=== PATIENT | female | born 1995 | race Asian ===

== ENCOUNTER → 2018-12-02 12:46 | Outpatient (REF) | payer SELFPAY ==
[2018-12-02 13:07] LABS: Influenza A and B by PCR Rapid Negative (Negative)
== END ==
LOC: LAB 12:46
PROVIDERS: Visit Provider Nurse Practitioner Family
DX: R50.9 Fever, unspecified (principal); R05 Cough; R52 Pain, unspecified
CPT/HCPCS: 87400

== ENCOUNTER → 2019-08-11 18:19 | Outpatient (CLI) | payer OTHER, SELFPAY ==
--- NOTE | 2019-08-11 18:22 | DI.RAD.S_ITS ---
PROCEDURE: XR CHEST 2V INDICATIONS: hx of bcg vaccine, r/o tb TECHNIQUE: 2 views of the chest were acquired. COMPARISON: None. FINDINGS: Surgical changes and devices: None. Lungs and pleura: Lungs are clear. No pleural effusions or pneumothorax. Mediastinum: Mediastinal contours are normal. Heart size is normal. Bones and chest wall: No suspicious bony abnormalities. Soft tissues appear unremarkable. IMPRESSION: No acute cardiopulmonary disease process. No radiographic evidence of tuberculosis. Dictated by: Fara Villanueva MD, PhD on 08/11/2019 at 18:40 Approved by: Fara Villanueva MD, PhD on 08/11/2019 at 18:40
== END ==
PROVIDERS: Visit Provider Physician Assistant
DX: Z11.1 Encounter for screening for respiratory tuberculosis (principal)
CPT/HCPCS: 71046

== ENCOUNTER → 2019-12-15 11:02 | Outpatient (CLI) | payer OTHER, SELFPAY ==
[2019-12-15 13:02] LABS: Add Manual Diff / Slide Review NO; Basophils Absolute Auto 0 /uL (0-100); Basophils Percent Auto 0.6 % (0-2); Eosinophils Absolute Auto 500 /uL (0-450); Eosinophils Percent Auto 6.9 % (2-4); Hemoglobin 13.6 g/dL (12.0-16.0); Lymphocytes Absolute Auto 2300 /uL (1100-4500); Lymphocytes Percent Auto 31.7 % (25-40); Mean Corpuscular Hemoglobin 30.6 PG (26-34); Mean Corpuscular Volume 89.8 fL (80-100); Monocytes Absolute Auto 500 /uL (0-900); Monocytes Percent Auto 7.3 % (3-14); Neutrophils Absolute Auto 3900 /uL (1500-7000); Neutrophils Percent Auto 53.5 % (50-75); Platelet Count 224 X10^3/uL (150-400); Red Blood Cell Count 4.45 X10^6/uL (4.0-5.2); Red Cell Distribution Width 12.7 % (11.6-14.8); White Blood Cell Count 7.2 X10^3/uL (4.5-11.0)
[2019-12-15 13:06] LABS: Alanine Aminotransferase 22 IU/L (<35); Albumin 4.6 g/dL (3.5-5.0); Albumin Globulin Ratio 1.3 (1.0-2.8); Alkaline Phosphatase 52 U/L (38-126); Aspartate Aminotransferase 30 IU/L (14-36); BUN Creatinine Ratio 20.3 (6-22); Bilirubin Total 0.4 mg/dL (0.2-1.3); Blood Urea Nitrogen 12 mg/dL (7-17); Calcium 9.4 mg/dL (8.4-10.2); Carbon Dioxide 25 mmol/L (22-32); Chloride 104 mmol/L (98-107); Estimated Glomerular Filt Rate > 60.0 mL/min (>60); Globulin 3.6 g/dL (1.7-4.1); Glucose 142 mg/dL (70-100); HEMOLYSIS < 15 (0-50); Potassium 3.5 mmol/L (3.4-5.1); Sodium 141 mmol/L (137-145); Total Protein 8.2 g/dL (6.3-8.2)
== END ==
PROVIDERS: PCP Family Medicine; Referring Provider Family Medicine; Visit Provider Family Medicine
DX: F41.9 Anxiety disorder, unspecified (principal); R00.2 Palpitations
CPT/HCPCS: 36415; 80053; 84443; 85025

== ENCOUNTER → 2019-12-18 14:56 | Outpatient (CLI) | payer OTHER, SELFPAY ==
--- NOTE | 2019-12-18 14:59 | DI.ECHO.S_ITS ---
[facility]---------+ [facility] +---------+ : : [address] [place] : : : : [id number] : : : : Phone: [phone]+ Echocardiogram Report + + :Name: THANH CLAYTON Study Date: 12/18/2019 Height: 61 in : :[facility] Weight: 145 lb : : Gender: Female BSA: 1.6 m2 : :: 1995 Age: 24 yrs BP: 118/64 mmHg: :Reason For Study: PALPITATIONS : : Performed By: Kristie Tripp : :Referring: JULIANE EDWARDS : + + Interpretation Summary The left ventricle is normal in size. The ejection fraction is estimated to be 60-65%. The right ventricle is normal in size and function. No significant valvular pathology seen. The IVC is of normal diameter and collapses greater than 50% with a sniff. This suggests a low right atrial pressure of 3 mm Hg. Procedure: A two-dimensional transthoracic echocardiogram with color flow and Doppler was performed. The study quality was technically good. There is no prior echocardiogram noted for this patient. The patient was in normal sinus rhythm during the exam. Left Ventricle: The left ventricle is normal in size. There is normal left ventricular wall thickness. There is no thrombus. The ejection fraction is estimated to be 60-65%. There are no focal wall motion abnormalities. Diastolic parameters suggest probable normal left ventricular diastolic function and normal filling pressures. Right Ventricle: The right ventricle is normal in size and function. Atria: The left atrial size is normal. Right atrial size is normal. The interatrial septum is intact with no evidence for an atrial septal defect. Mitral Valve: The mitral valve is normal in structure and function. There is trace mitral regurgitation. Aortic Valve: The aortic valve is normal in structure and function. The aortic valve is trileaflet. The aortic valve opens well. No aortic regurgitation is present. Tricuspid Valve: The tricuspid valve is normal in structure and function. No tricuspid regurgitation. Pulmonary artery pressures cannot be estimated because of the lack of a measurable TR jet velocity but the IVC suggests a CVP of around 3 mmHg. Pulmonic Valve: The pulmonic valve is normal in structure and function. There is no pulmonic valvular regurgitation. Great Vessels: The aortic root is normal size. The dimensions of the ascending aorta are normal. The pulmonary artery is normal size. The IVC is of normal diameter and collapses greater than 50% with a sniff. This suggests a low right atrial pressure of 3 mm Hg. Pericardium/ Pleura There is no pericardial effusion. There is no pleural effusion. MMode/2D Measurements & Calculations LVIDd: 4.5 cm LVOT diam: 2.0 cm LVIDs: 3.1 cm Ao root diam: 2.3 cm FS: 31.1 % asc Aorta Diam: 2.6 cm EPSS: 0.76 cm Ao Arch Diam (Prox Trans): 2.4 cm IVSd: 0.59 cm LVPWd: 0.69 cm LV william. diameter/BSA (cm/m^2): 2.7 LV sys. diameter/BSA (cm/m^2): 1.9 LA A2 area: 14.6 cm2 RA long axis: 4.2 cm LA A4 area: 13.2 cm2 RA area: 12.5 cm2 LA length (vol): 4.6 cm RA vol: 31.9 ml LA vol: 35.4 ml RA : 19.3 ml/m2 LA vol index: 21.5 ml/m2 RVD1 (basal): 3.3 cm TAPSE: 2.9 cm Doppler Measurements & Calculations Ao V2 max: 139.7 cm/sec LVOT Max Markell: 105.7 cm/sec Ao V2 mean: 90.0 cm/sec LV V1 max P.5 mmHg Ao max P.8 mmHg LV V1 VTI: 21.2 cm Ao mean P.8 mmHg BENTON(I,D): 2.4 cm2 Ao V2 VTI: 27.0 cm BENTON(V,D): 2.3 cm2 sev ratio: 0.79 BENTON indexed to BSA (cm^2/m^2): 1.4 MV E max markell: 106.4 cm/sec PA V2 max: 99.0 cm/sec MV A max markell: 64.7 cm/sec PA V2 mean: 69.7 cm/sec MV E/A: 1.6 PA mean P.2 mmHg Med Peak E' Markell: 13.4 cm/sec PA pr(Accel): 22.5 mmHg E/E' med: 7.9 Lat Peak E' Markell: 13.0 cm/sec E/E' lat: 8.2 E/e' average: 8.0 MV dec time: 0.18 sec SV(LVOT): 63.7 ml Reading Physician:05:06 PM
== END ==
PROVIDERS: PCP Family Medicine; Referring Provider Family Medicine; Visit Provider Family Medicine
DX: R00.2 Palpitations (principal)
CPT/HCPCS: 93306

== ENCOUNTER → 2019-12-22 10:05 | Outpatient (CLI) | payer OTHER, SELFPAY ==
[2019-12-22 11:39] LABS: Glucose 94 mg/dL (70-100)
== END ==
PROVIDERS: PCP Family Medicine; Referring Provider Family Medicine; Visit Provider Family Medicine
DX: R73.9 Hyperglycemia, unspecified (principal)
CPT/HCPCS: 36415; 82947

== ENCOUNTER → 2020-01-02 09:12 | Outpatient (CLI) | payer OTHER, SELFPAY ==
[2020-01-02 10:55] LABS: BUN Creatinine Ratio 23.4 (6-22); Blood Urea Nitrogen 11 mg/dL (7-17); Calcium 9.5 mg/dL (8.4-10.2); Carbon Dioxide 26 mmol/L (22-32); Chloride 103 mmol/L (98-107); Estimated Glomerular Filt Rate > 60.0 mL/min (>60); Glucose 90 mg/dL (70-100); HEMOLYSIS < 15 (0-50); Sodium 138 mmol/L (137-145)
== END ==
PROVIDERS: PCP Family Medicine; Referring Provider Family Medicine; Visit Provider Family Medicine
DX: R73.01 Impaired fasting glucose (principal)
CPT/HCPCS: 36415; 80048; 83036

== ENCOUNTER → 2020-10-14 16:26 | Outpatient (CLI) | payer OTHER, SELFPAY ==
[2020-10-14 17:08] LABS: Hematocrit 40.8 % (36-46); Hemoglobin 13.7 g/dL (12.0-16.0); Mean Corpuscular HGB Conc 33.5 % (30-36); Mean Corpuscular Hemoglobin 29.9 PG (26-34); Mean Corpuscular Volume 89.2 fL (80-100); Platelet Count 218 X10^3/uL (150-400); Red Blood Cell Count 4.57 X10^6/uL (4.0-5.2); Red Cell Distribution Width 12.6 % (11.6-14.8); White Blood Cell Count 11.1 X10^3/uL (4.5-11.0)
[2020-10-14 17:24] LABS: BUN Creatinine Ratio 26.5 (6-22); Blood Urea Nitrogen 13 mg/dL (7-17); Calcium 9.3 mg/dL (8.4-10.2); Carbon Dioxide 29 mmol/L (22-32); Chloride 105 mmol/L (98-107); Estimated Glomerular Filt Rate > 60.0 mL/min (>60); Glucose 98 mg/dL (70-100); HEMOLYSIS < 15 (0-50); Potassium 3.2 mmol/L (3.4-5.1); Sodium 140 mmol/L (137-145)
[2020-10-14 17:53] LABS: TSH w/ Reflex to FT4 2.22 uIU/mL (0.47-4.68)
== END ==
PROVIDERS: PCP Family Medicine; Referring Provider Nurse Practitioner Family; Visit Provider Nurse Practitioner Family
DX: Z00.00 Encounter for general adult medical examination without abnormal findings (principal); N94.6 Dysmenorrhea, unspecified; R42 Dizziness and giddiness; Z31.69 Encounter for other general counseling and advice on procreation
CPT/HCPCS: 36415; 80048; 84443; 85027

== ENCOUNTER → 2021-03-09 16:22 | Outpatient (CLI) | payer OTHER, SELFPAY ==
[2021-03-09 16:58] LABS: COVID19 -Nasal RAPID Negative (Negative)
== END ==
PROVIDERS: PCP Family Medicine; Referring Provider Specialist; Visit Provider Specialist
DX: Z01.812 Encounter for preprocedural laboratory examination (principal); Z20.822 Contact with and (suspected) exposure to COVID-19
CPT/HCPCS: 87635

== ENCOUNTER 2021-03-10 08:02 | Day surgery (SDC) | payer OTHER, SELFPAY ==
[2021-03-04 13:28] VITALS: BMI 27.0
[2021-03-10] VITALS (9 sets, daily range): BP systolic 86–116; BP diastolic 55–78; PULSE 59–86; RESP 14–32; TEMP 36.2–36.4; O2SAT 99–100; BMI 27.0
[2021-03-10] MEDS: LACTATED RINGERS 1,000 ML 100 ML IV (08:39)
--- NOTE | 2021-03-10 09:24 | PM.HP.1 ---
History of Present Illness History of Present Illness Date Patient Seen: 03/10/21 Time Patient Seen: 09:25 Chief complaint: SDC Narrative: Patient is a 25-year-old 0 with a persistent right ovarian cyst who presents for laparoscopic removal of the cyst. Patient History Medical History (Updated 11/22/20 @ 17:08 by Felisha Gordon MD) Anxiety Dysmenorrhea Infertility counseling Light-headed feeling Palpitations Vertigo Surgical History (Updated 02/23/19 @ 23:03 by Tracee Rooney) History of lithotripsy Family & Social History Family History (Updated 02/23/19 @ 23:04 by Tracee Rooney) Mother Early menopause Father History of heart disease Mother History of heart disease Stroke Social History: household members spouse Tobacco & Substance use: Smoking Status Never smoker alcohol intake never Substance Use Type does not use Meds Home Medications and Allergies Home Medications Medication Instructions Recorded Confirmed Type ferrous sulfate 325 mg (65 mg 325 mg PO DAILY 10/14/20 03/10/21 History iron) tablet (Feosol) meclizine 25 mg tablet 25 mg PO BID PRN #30 tab 10/14/20 03/04/21 Rx prenat.vits,dalton,cnz-vyla-trivq 1 tab PO DAILY 10/14/20 03/10/21 History Allergies Allergy/AdvReac Type Severity Reaction Status Date / Time soap AdvReac Mild Rash Verified 03/10/21 08:27 Exam Vital Signs (past 8 hours): - 03/10/21 08:29 Temperature 97.1 F L Pulse Rate 86 Respiratory Rate 16 Blood Pressure 116/78 Pulse Oximetry 100 Oxygen Delivery Method Room Air Oxygen Flow Rate 0 Narrative Exam Narrative: HEENT: No thyromegaly, no anterior cervical or supraclavicular lymphadenopathy. Lungs:Clear to auscultation bilaterally, no wheezes. Cardiovascular: Regular rate and rhythm, no murmurs, rubs, or gallops. Abdomen: No scars. No hepatosplenomegaly. No masses palpable. External genitalia: Normal Vagina: Normal Cervix: Normal Bimanual exam: 6 Week size anteverted uterus. Mobile. Right adnexal tenderness and fullness. Assessment & Plan Assessment & Plan narrative: Assessment: 25-year-old 0 with a persistent right ovarian cyst Plan: Laparoscopic removal of right ovarian cyst The risks were explained to the patient including bleeding, infection, injury to the bowel, bladder, or ureters. She understands these risks and agrees to proceed. A full par Q was held and consent form was signed. COVID-19 COVID-19 status: Negative Result date/Date tested (Pos, Neg/Pending): 03/09/21 Time Spent With Patient Time with patient: less than 15 minutes
--- NOTE | 2021-03-10 09:27 | PM.PREOP ---
Pre-operative Note COVID-19 COVID-19 status: Negative Result date/Date tested (Pos, Neg/Pending): 03/09/21 Interval Note History & Physical reviewed/Exam performed by Physician: Yes Changes to H&P: No H&P completed within 30 days and has changed as indicated here:: 03/10/21
--- NOTE | 2021-03-10 09:48 | SUR.OPER ---
Lithotomy on padded OR bed, head on pillow, arms padded with gel pads and tucked at sides. Legs secured in padded yellow fins stirrups.
[2021-03-10] MEDS: BUPIVACAINE 0.5% (PF) VIAL 30 ML INJ (10:04)
[2021-03-10] MEDS: EPINEPHrine 1 MG/ML IV (10:05)
--- NOTE | 2021-03-10 10:35 | SUR.PHASEI ---
1030 Patient complained of slight dizziness, tolerating sips water and ice chips. Denies nausea. HOB down, IVF running wide open, IV site patent. Pt now states she feels 'normal.
--- NOTE | 2021-03-10 10:42 | P.OP_ITS ---
Operative Date/Time/Diagnoses Date of procedure: 03/10/21 Time of procedure: 10:42 Pre-op diagnosis: Right ovarian cyst Post-op diagnosis: same Procedure & Clinicians Procedure: Procedures Operation Date: 03/10/21 09:15 Actual Procedure Side Surgeon p Laparoscopic Aspiration of Right Ovarian Cyst and Fulguration of Endometriosis Right Felisha Gordon MD Indications: Persistent Right ovarian cyst Surgeon: Felisha Gordon Anesthesia Type: General and Local Operative Notes Findings: 6 week size anteverted uterus Large 1 cm x 0.75 cm endometrial implant in the left ovarian fossa No other signs of endometriosis Normal tubes and ovaries Normal appendix Normal gallbladder and liver 3 cm x 3 cm simple ovarian cyst on the right ovary No evidence of other endometriosis throughout the pelvis including appendix, right ovarian fossa, ovaries and tubes, and anterior and posterior cul-de-sacs Closure Type: primary Specimen(s): none Estimated blood loss (mL): 5 Blood products transfused: none Procedure in detail: After informed consent was obtained, the patient was taken to the operating room where she was placed in the dorsal lithotomy position and prepped and draped in the usual sterile fashion. A time-out was performed. A bivalve speculum was placed into the vagina and the anterior lip of the cervix was grasped with a single-tooth tenaculum. Cervical os was sequentially dilated until the Zumi uterine manipulator could pass easily into the endometrial cavity. The single-tooth tenaculum was removed from the anterior lip of the cervix, and the bivalve speculum was removed from the vagina. Attention was turned to the abdomen where 6 cc of 0.5% Marcaine with epinephrine were injected in the umbilical fold. A 5 mm incision was made. The Veress needle was placed into the peritoneal cavity, and its placement confirmed by aspiration and drop test. The abdominal cavity was insufflated with 3.4 L of CO2. The Veress needle was removed and a 5 mm trocar was placed without difficulty. A second trocar was placed 4 cm lateral to the midline after 6 cc of 0.5% Marcaine with epinephrine were injected and a 5 mm trocar was placed under direct visualization. The probe was used to visualize the anterior and posterior cul-d e-sac. In the left ovarian fossa there was a large endometriotic implant. A third trocar was placed after 6 cc of 0.5% Marcaine with epinephrine were injected, 4 cm on the right lateral side of the umbilicus. Using the spoon cautery, the endometriotic implant was fulgurated. An atraumatic grasper was placed on the right utero-ovarian ligament. Using the aspirator, the right ovarian cyst was aspirated. The cyst was then opened up and the wall of the cyst was cauterized. Hemostasis was achieved. The instruments were removed from the abdomen. The CO2 was allowed to escape. The incisions were repaired with 4-0 Biosyn in a subcuticular fashion. Steri-Strips and Allevyn dressings were placed. The Zumi uterine manipulator was removed from the uterus. Sponge, lap, and instrument counts were correct x2. The patient tolerated the procedure well, and was taken to PACU in stable condition. Complications: none Post-operative Condition: stable Disposition: PACU Plan for aftercare: Home after recovery
[2021-03-10] MEDS: ACETAMINOPHEN 325 MG TABLET 650 MG PO (10:47)
--- NOTE | 2021-03-10 10:53 | SUR.PHASEI ---
Spoke with Dr Gordon for instructions on return to work. Off for 1 week. See DC instructions.
--- NOTE | 2021-03-10 11:01 | SUR.PHASEI ---
1058 Patient transferred to OPD via stretcher with Carley BASS. Dizziness resolved. Tolerating Juice. Dressings and deb pad CDI.
== END 2021-03-10 11:40 | disposition home or self-care (01) ==
PROVIDERS: PCP Family Medicine; Referring Provider Obstetrics & Gynecology; Visit Provider Obstetrics & Gynecology
PROC: (CPT 58662; principal; 2021-03-10 09:15)
DX: N83.291 Other ovarian cyst, right side (principal); N80.1 Endometriosis of ovary
CPT/HCPCS: 58662; 49322; J0171; J1100; J1885; J2250; J2405; J2704; J3010

== ENCOUNTER → 2022-02-15 15:14 | Outpatient (CLI) | payer OTHER, SELFPAY ==
--- NOTE | 2022-02-15 15:18 | DI.RAD.S_ITS ---
PROCEDURE: XR SHOULDER RT MIN 2V INDICATIONS: Shoulder injury TECHNIQUE: 3 views of the shoulder were acquired. COMPARISON: None. FINDINGS: Bones: No fractures or dislocations. No suspicious bony lesions. Visualized ribs appear intact. Soft tissues: No suspicious soft tissue calcifications. IMPRESSION: Normal right shoulder radiographs Approved by: Don Narayanan M.D. on 02/15/2022 at 15:25
--- NOTE | 2022-02-15 15:18 | DI.RAD.S_ITS ---
PROCEDURE: XR AC JOINT BI INDICATIONS: pop when lifting, constant pain, r/o fx TECHNIQUE: 2 views each of both acromioclavicular joints were acquired. COMPARISON: None. FINDINGS: Bones: No fractures or dislocations. Weightbearing views demonstrate normal acromioclavicular joint alignment as well. No suspicious bony lesions. Superior ribs appear normal. Soft tissues: No suspicious soft tissue calcifications. IMPRESSION: Unremarkable AC joint radiographs. No evidence of fracture. Approved by: Don Narayanan M.D. on 02/15/2022 at 15:22
== END ==
PROVIDERS: Referring Provider Physician Assistant; Visit Provider Physician Assistant
DX: S49.91XA Unspecified injury of right shoulder and upper arm, initial encounter (principal); M25.511 Pain in right shoulder; X58.XXXA Exposure to other specified factors, initial encounter
CPT/HCPCS: 73030; 73050

== ENCOUNTER 2022-05-19 09:00 | Outpatient (RCR) | payer OTHER, SELFPAY ==
--- NOTE | 2022-03-27 13:48 | PT.OIE ---
Current Diagnoses Strain of unspecified muscle, fascia and tendon at shoulder and upper arm level, right arm, initial encounter (03/27/22) Past Medical History (Last Updated 10/14/20 @ 17:01 by ANGELICA Weiss) Anxiety Dysmenorrhea Infertility counseling Light-headed feeling Palpitations Vertigo Past Surgical History (Last Updated 02/23/19 @ 23:03 by Tracee Rooney) History of lithotripsy Visit Care Team Role Provider Type Piter Munoz DO Family Provider Physician Primary Care Provider Specialty: Family Practice Address: [address] [place] [address], [facility] Email: [email or web address] Attending Provider [employer] 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 Referring Provider Specialty: Internal Medicine Address: [address] [place] [address], [facility] Email: [email or web address] Physical Therapy Initial Evaluation PT-OP-A Visit Information Start: 03/23/22 16:54 Freq: Status: Active Protocol: Document 03/27/22 13:48 SAK (Rec: 03/27/22 14:32 SAK [id number]) Out-Patient Physical Therapy Visit Information Visit Information Visit Type Initial Evaluation Visit Start Time 13:48 Visit Stop Time 14:44 Total Visit Minutes 56 Visit Number 1 Evaluation Information Evaluation Date 03/27/22 PT-OP-B Current Condition Start: 03/23/22 16:54 Freq: Status: Active Protocol: Document 03/27/22 13:48 [facility]AK (Rec: 03/27/22 14:32 [facility] [id number]) Current Condition History of Current Condition Onset Date 11/28/21 (day before ) Current Complaints shoulder pain History of Current Condition tried to keep patient from falling to the floor, heard pop in her shoulder, has hurt ever since. x-ray negative. Will do further imaging if PT not helpful. Patient still working, no time off. Painful to reach overhead, behind her back, out to the side with ADL's and work. Has tried ice and heat, Tylenol and Ibuprofen. Prior Treatments and Tests x-ray negative Future Testing and Treatments Planned return to doctor if PT not helpful Treatment Goals Patient/Caregiver Goals eliminate her pain, return to full active use of her right UE Prior Functional Status Baseline Function- ADL's Independent Baseline Function- Mobility Independent Baseline Function- Recreation/Hobbies no prob, biked Current Functional Impairments (Reported) Functional Limitations- ADL's painful to lift overhead, reach to side, or reach behind her back Functional Limitations- Work/School painful Functional Limitations- Recreation/ biking is painful Hobbies Personal Factors Other Personal Factors That May Effect 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 PT-OP-C Subjective Start: 03/23/22 16:54 Freq: Status: Active Protocol: Document 03/27/22 13:48 [facility] (Rec: 03/27/22 14:32 [facility] [id number]) Patient Questionnaires Quick Dash- Upper Extremity Quick Dash UE Score 50 OP-PT Pain Assessment Pain Assessment Grid Paper Pain Assessment Grid Completed Yes Location Right Shoulder Pain Location Details see pain chart;GH joint line ant and post Intensity 7 Description Aching Frequency Frequent Pain Aggravating Factors Activity,Lifting Other Pain Aggravating Factors reaching overhead, behind back Pain Alleviating Factors Cold,Heat,Medication Other Pain Alleviating Factors minimal effect Pain Behaviors Pain Behaviors Facial Grimacing,Guarding, Restlessness PT-OP-H Neuro Start: 03/23/22 16:54 Freq: Status: Active Protocol: Document 03/27/22 13:48 SAK (Rec: 03/27/22 14:32 [facility] [id number]) Sensation Evaluation Gross Sensation Gross Sensation WNL PT-OP-J Posture/Palpation/Skin Start: 03/23/22 16:54 Freq: Status: Active Protocol: Document 03/27/22 13:48 [facility] (Rec: 03/27/22 14:32 [facility] [id number]) Posture Evaluation Position Sitting T-Spine Posture Increased Kyphosis Scapula Posture (R) Protracted Arm Posture (R) Internally Rotated Palpation Assessment Location GH Palpation Location along joint line Palpation Findings Tenderness Palpation Details tenderness with light palpation Skin Assessment Edema Assessment right shoulder Comments none noted Other Assessments Skin Assessment Comments skin intact, no redness or warmth PT-OP-K Range of Motion Start: 03/23/22 16:54 Freq: Status: Active Protocol: Document 03/27/22 13:48 [facility]AK (Rec: 03/27/22 14:32 [facility] [id number]) Cervical Spine Range of Motion Cervical Spine Active Comments WNL, slight right UT tightness Shoulder Goniometric Range of Motion Shoulder Right Active Shoulder ROM WFL No Testing Position Sitting Flexion 152 Extension 16 Abduction 121 External Rotation at 45 degrees 40 Abduction Internal Rotation Behind Back (text) lateral buttock left Shoulder ROM WFL Yes Flexion 180 Extension 35 Abduction 180 External Rotation at 45 degrees 80 Abduction Internal Rotation Behind Back (text) T4 Elbow/Forearm Range of Motion Elbow/Forearm juan Elbow/Forearm ROM WFL Yes PT-OP-M Strength Start: 03/23/22 16:54 Freq: Status: Active Protocol: Document 03/27/22 13:48 [facility] (Rec: 03/29/22 12:08 [facility] [id number]) Scapula Strength Scapula Manual Muscle Testing Right Elevation (C4) 3+ Fair+ Adduction 3+ Fair+ Abduction 3+ Fair+ Depression 3+ Fair+ Left Elevation (C4) 5 Normal Adduction 5 Normal Abduction 5 Normal Depression 5 Normal Shoulder Strength Shoulder Manual Muscle Testing Right Flexion 3- Fair- Extension 3- Fair- Abduction (C5) 3- Fair- External Rotation 3- Fair- Internal Rotation 3+ Fair+ Comments limited by pain, inability to move through full AROM Left Flexion 5 Normal Extension 5 Normal Abduction (C5) 5 Normal External Rotation 4+ Good+ Internal Rotation 4+ Good+ Elbow/Forearm Strength Elbow and Forearm Manual Muscle Testing Right Flexion (C6) 4- Good- Extension (C7) 4- Good- Comments limited by pain Left Flexion (C6) 5 Normal Extension (C7) 5 Normal PT-OP-Q Treatments Start: 03/23/22 16:54 Freq: Status: Active Protocol: Document 03/27/22 13:48 [facility] (Rec: 03/29/22 12:09 [facility] [id number]) Self-Care/Home Management Treatment Education Patient Education Home Exercise Program,Pain Management,Posture Other Education issued written HEP PT-OP-R Modalities Start: 03/23/22 16:54 Freq: Status: Active Protocol: Document 03/27/22 13:48 [facility] (Rec: 03/29/22 12:08 [facility] [id number]) Electric Stimulation Electric Stimulation Interferential Current (IFC) Body Location right shoulder Duration (Minutes) 10 Target/Sweep Sweep Patient Position Hooklying Combined With Heat/Cold Cold Pack Ultrasound Therapy Treatment Right Anterior Shoulder Patient Position Supine Coupling Medium Ultrasound Gel Duty Cycle 50% Intensity Setting (w/cm2) 1.2 Comments to decrease inflammation and pain PT-OP-T Assessment and Plan Start: 03/23/22 16:54 Freq: Status: Active Protocol: Document 03/27/22 13:48 [facility] (Rec: 03/27/22 14:32 [facility] [id number]) Physical Therapy Assessment Rehab Potential Rehabilitation Potential Good Evaluation Complexity Number of Personal Factors/Comorbidities 1-2 Number of Body Systems Impaired 3 Clinical Presentation at Evaluation Evolving Impairments Impairments Functional Activities,Pain,ROM ,Strength Goals right shoulder ROM and strength impairment Impairment lacking full shoulder ROM and strength Short Term Goal (STG) Improve right shoulder active elevation to 170 deg, ER to 60 , and internal rotation to be able to reach to L1 behind her back all to improve her functinal use of right UE STG Duration 05/04/22 Half-Way Goal (LTG) Patient to demonstrate right shoulder ROM WNL and strength 5/5 to allow her to safely return to prior level of function. LTG Duration 06/27/22 lacking HEP Impairment No HEP Short Term Goal (STG) Patient to be instructed in HEP for purposes of right shoulder ROM and strengthening for improved right shoulder function STG Duration 05/04/22 Half-Way Goal (LTG) Patient will be independent and compliant with progressive HEP for purposes of improving right shoulder ROM and strength for improved ability to use right UE LTG Duration 06/27/22 functional activity tolerance Impairment Quickdash UE disability index score 50% Short Term Goal (STG) Decrease score to no greater than 25% as measure of improved functional use of right UE STG Duration 05/04/22 Childhood Teacher Goal (LTG) Decrease score to no greater than 10% to allow patient to resume all usual activities with her shoulder including all work tasks, reaching overhead, behind her back, and ride her bike without an increase in pain. LTG Duration 06/27/22 Assessment Summary Assessment Patient presents with function -limiting pain in her right shoulder following attempt to keep patient from falling to the ground with immediate onset of right shoulder pain which has persisted. Patient has continued to work, pain persists and makes it very difficulty and painful for her to reach overhead, behind her back, and out to the side. positive drop arm, belly press , impingment signs [place]'s tests. Painful with resisted ER, IR, flex, ext, abduction. Signs and symptoms consistent with rotator cuff involvement , possible labral involvement. Feel she would benefit from PT to decrease her pain, improve her ROM and strength and ability to do all usual tasks using her right UE. She was instructed in gentle ROM ex and postural correction exercises due to guarding, trial kinesiotape , and ultrasound and ice applied to right shoulder for pain management. We discussed POC and patient agrees. Physical Therapy Plan Frequency and Duration Frequency of Treatment 2x/Week Duration of Treatment 12 weeks Plan of Care Start Date 03/27/22 Plan of Care End Date 06/27/22 Therapeutic Interventions Therapeutic Interventions Aquatic Therapy,Home Exercise Program,Manual Therapy,Patient /Caregiver Education,Self-Care /Home Management,Sensory Integration,Soft Tissue Mobilization,Taping, Therapeutic Activities, Therapeutic Exercises Modalities Cold Pack/Ice Massage,Electric Stimulation,Hot Packs, Iontophoresis,Ultrasound Next Visit Focus/Plan Next Note Type Treatment Note Next Visit Plan Evaluate response to eval and first treatment. Review HEP, gentle ther ex for ROM and strengthening right shoulder. Continue modalities, taping as needed for pain management.
--- NOTE | 2022-03-27 13:48 | PT.OPPOC ---
Physical, Occupational & Speech Therapy At [facility] Current Diagnoses Strain of unspecified muscle, fascia and tendon at shoulder and upper arm level, right arm, initial encounter (03/27/22) Visit Care Team Role Provider Type Piter Munoz DO Family Provider Physician Primary Care Provider Specialty: Family Practice Address: [address] [place] [address], [facility] Email: [email or web address] Attending Provider Advanced Rotor Coil Taper Referring Provider Specialty: Internal Medicine Address: [address] [place] [address], [facility], [place], [address] Email: [email or web address] Plan Of Care PT-OP-T Assessment and Plan Start: 03/23/22 16:54 Freq: Status: Active Protocol: Document 03/27/22 13:48 SAK (Rec: 03/27/22 14:32 [facility] [id number]) Physical Therapy Assessment Rehab Potential Rehabilitation Potential Good Evaluation Complexity Number of Personal Factors/Comorbidities 1-2 Number of Body Systems Impaired 3 Clinical Presentation at Evaluation Evolving Impairments Impairments Functional Activities,Pain,ROM ,Strength Goals right shoulder ROM and strength impairment Impairment lacking full shoulder ROM and strength Short Term Goal (STG) Improve right shoulder active elevation to 170 deg, ER to 60 , and internal rotation to be able to reach to L1 behind her back all to improve her functinal use of right UE STG Duration 05/04/22 Penitentiary Goal (LTG) Patient to demonstrate right shoulder ROM WNL and strength 5/5 to allow her to safely return to prior level of function. LTG Duration 06/27/22 lacking HEP Impairment No HEP Short Term Goal (STG) Patient to be instructed in HEP for purposes of right shoulder ROM and strengthening for improved right shoulder function STG Duration 05/04/22 Penitentiary Goal (LTG) Patient will be independent and compliant with progressive HEP for purposes of improving right shoulder ROM and strength for improved ability to use right UE LTG Duration 06/27/22 functional activity tolerance Impairment Quickdash UE disability index score 50% Short Term Goal (STG) Decrease score to no greater than 25% as measure of improved functional use of right UE STG Duration 05/04/22 [employer] Lead Goal (LTG) Decrease score to no greater than 10% to allow patient to resume all usual activities with her shoulder including all work tasks, reaching overhead, behind her back, and ride her bike without an increase in pain. LTG Duration 06/27/22 Assessment Summary Assessment Patient presents with function -limiting pain in her right shoulder following attempt to keep patient from falling to the ground with immediate onset of right shoulder pain which has persisted. Patient has continued to work, pain persists and makes it very difficulty and painful for her to reach overhead, behind her back, and out to the side. positive drop arm, belly press , impingment signs Dover's tests. Painful with resisted ER, IR, flex, ext, abduction. Signs and symptoms consistent with rotator cuff involvement , possible labral involvement. Feel she would benefit from PT to decrease her pain, improve her ROM and strength and ability to do all usual tasks using her right UE. She was instructed in gentle ROM ex and postural correction exercises due to guarding, trial kinesiotape , and ultrasound and ice applied to right shoulder for pain management. We discussed POC and patient agrees. Physical Therapy Plan Frequency and Duration Frequency of Treatment 2x/Week Duration of Treatment 12 weeks Plan of Care Start Date 03/27/22 Plan of Care End Date 06/27/22 Therapeutic Interventions Therapeutic Interventions Aquatic Therapy,Home Exercise Program,Manual Therapy,Patient /Caregiver Education,Self-Care /Home Management,Sensory Integration,Soft Tissue Mobilization,Taping, Therapeutic Activities, Therapeutic Exercises Modalities Cold Pack/Ice Massage,Electric Stimulation,Hot Packs, Iontophoresis,Ultrasound Next Visit Focus/Plan Next Note Type Treatment Note Next Visit Plan Evaluate response to eval and first treatment. Review HEP, gentle ther ex for ROM and strengthening right shoulder. Continue modalities, taping as needed for pain management. Plan of Care Dates Plan of Care Start Date 03/27/22 Plan of Care End Date 06/27/22 Electronically Signed by: Luana Bonilla, PT 03/29/22 7250 If you are in agreement with this Plan of Care, please return a signed and dated copy. I have reviewed this Plan of Care and certify that the skilled therapy services above are required to meet the patient?s needs. Physician Signature Date Printed Name and Credentials Clinical Instructor Signature Printed Name and Credentials
--- NOTE | 2022-04-03 16:40 | PT.OTN ---
Current Diagnoses Strain of unspecified muscle, fascia and tendon at shoulder and upper arm level, right arm, initial encounter (04/03/22) Physical Therapy Treatment Note PT-OP-A Visit Information Start: 03/23/22 16:54 Freq: Status: Active Protocol: Document 04/03/22 14:32 SAK (Rec: 04/03/22 15:14 SAK [id number]) Out-Patient Physical Therapy Visit Information Visit Information Visit Type Treatment Note Visit Start Time 14:32 Visit Stop Time 15:20 Total Visit Minutes 48 Visit Number 2 Evaluation Information Evaluation Date 03/27/22 PT-OP-B Current Condition Start: 03/23/22 16:54 Freq: Status: Active Protocol: Document 04/03/22 14:32 SAK (Rec: 04/03/22 15:14 [facility] [id number]) Current Condition History of Current Condition Onset Date 11/28/21 (day before ) Current Complaints shoulder pain History of Current Condition tried to keep patient from falling to the floor, heard pop in her shoulder, has hurt ever since. x-ray negative. Will do further imaging if PT not helpful. Patient still working, no time off. Painful to reach overhead, behind her back, out to the side with ADL's and work. Has tried ice and heat, Tylenol and Ibuprofen. Prior Treatments and Tests x-ray negative Future Testing and Treatments Planned return to doctor if PT not helpful PT-OP-C Subjective Start: 03/23/22 16:54 Freq: Status: Active Protocol: Document 04/03/22 14:32 SAK (Rec: 04/03/22 15:14 [facility] [id number]) OP-PT Subjective Patient Comments Patient Comments It's still there when asked about pain. Reports she did HEP. 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 PT-OP-H Neuro Start: 03/23/22 16:54 Freq: Status: Active Protocol: Document 03/27/22 13:48 SAK (Rec: 03/27/22 14:32 SAK [id number]) Sensation Evaluation Gross Sensation Gross Sensation WNL PT-OP-J Posture/Palpation/Skin Start: 03/23/22 16:54 Freq: Status: Active Protocol: Document 03/27/22 13:48 SAK (Rec: 03/27/22 14:32 SAK [id number]) Posture Evaluation Position Sitting T-Spine Posture Increased Kyphosis Scapula Posture (R) Protracted Arm Posture (R) Internally Rotated Palpation Assessment Location GH Palpation Location along joint line Palpation Findings Tenderness Palpation Details tenderness with light palpation Skin Assessment Edema Assessment right shoulder Comments none noted Other Assessments Skin Assessment Comments skin intact, no redness or warmth PT-OP-K Range of Motion Start: 03/23/22 16:54 Freq: Status: Active Protocol: Document 03/27/22 13:48 [facility] (Rec: 03/27/22 14:32 [facility] [id number]) Cervical Spine Range of Motion Cervical Spine Active Comments WNL, slight right UT tightness Shoulder Goniometric Range of Motion Shoulder Right Active Shoulder ROM WFL No Testing Position Sitting Flexion 152 Extension 16 Abduction 121 External Rotation at 45 degrees 40 Abduction Internal Rotation Behind Back (text) lateral buttock left Shoulder ROM WFL Yes Flexion 180 Extension 35 Abduction 180 External Rotation at 45 degrees 80 Abduction Internal Rotation Behind Back (text) T4 Elbow/Forearm Range of Motion Elbow/Forearm juan Elbow/Forearm ROM WFL Yes PT-OP-M Strength Start: 03/23/22 16:54 Freq: Status: Active Protocol: Document 03/27/22 13:48 [facility] (Rec: 03/29/22 12:08 [facility] [id number]) Scapula Strength Scapula Manual Muscle Testing Right Elevation (C4) 3+ Fair+ Adduction 3+ Fair+ Abduction 3+ Fair+ Depression 3+ Fair+ Left Elevation (C4) 5 Normal Adduction 5 Normal Abduction 5 Normal Depression 5 Normal Shoulder Strength Shoulder Manual Muscle Testing Right Flexion 3- Fair- Extension 3- Fair- Abduction (C5) 3- Fair- External Rotation 3- Fair- Internal Rotation 3+ Fair+ Comments limited by pain, inability to move through full AROM Left Flexion 5 Normal Extension 5 Normal Abduction (C5) 5 Normal External Rotation 4+ Good+ Internal Rotation 4+ Good+ Elbow/Forearm Strength Elbow and Forearm Manual Muscle Testing Right Flexion (C6) 4- Good- Extension (C7) 4- Good- Comments limited by pain Left Flexion (C6) 5 Normal Extension (C7) 5 Normal PT-OP-Q Treatments Start: 03/23/22 16:54 Freq: Status: Active Protocol: Document 04/03/22 14:32 [facility] (Rec: 04/03/22 15:14 [facility] [id number]) Therapeutic Exercises Sitting Exercises resisted ER Resistance L1 TB Reps/Minutes 10x shoulder IR Equipment Used pulleys Reps/Minutes 10x shoulder ext Reps/Minutes 10x Comments wand shoulder ER Equipment Used wand Reps/Minutes 10x pulleys Sitting Exercise Name flexion and scaption Reps/Minutes 10x ea scapular squeeze Reps/Minutes 10x Standing Exercises row Equipment Used L1 TB Reps/Minutes 10x pendulum Reps/Minutes 10x ea Manual Therapy Treatment Soft Tissue Mobilization right UT, RC inser Mobilization Type Cross-Friction,Myofascial Release,Sustained Pressure Intensity/Depth Moderate Body Position Supine Taping right RC Treatment Focus support, pain management Type of Tape kinesiotape Skin Inspection intact Comments 3 Y strips; see scanned RC taping technique in chart Self-Care/Home Management Treatment Education Patient Education Home Exercise Program,Pain Management,Posture Other Education issued updated written HEP PT-OP-R Modalities Start: 03/23/22 16:54 Freq: Status: Active Protocol: Document 04/03/22 14:32 [facility] (Rec: 04/03/22 15:14 [facility] [id number]) Electric Stimulation Electric Stimulation Interferential Current (IFC) Body Location right shoulder Duration (Minutes) 10 Target/Sweep Sweep Patient Position Hooklying Combined With Heat/Cold Cold Pack PT-OP-T Assessment and Plan Start: 03/23/22 16:54 Freq: Status: Active Protocol: Document 04/03/22 14:32 [facility] (Rec: 04/03/22 15:14 [facility] [id number]) Physical Therapy Assessment Goals right shoulder ROM and strength impairment Impairment lacking full shoulder ROM and strength Short Term Goal (STG) Improve right shoulder active elevation to 170 deg, ER to 60 , and internal rotation to be able to reach to L1 behind her back all to improve her functinal use of right UE STG Duration 05/04/22 Custodial Goal (LTG) Patient to demonstrate right shoulder ROM WNL and strength 5/5 to allow her to safely return to prior level of function. LTG Duration 06/27/22 lacking HEP Impairment No HEP Short Term Goal (STG) Patient to be instructed in HEP for purposes of right shoulder ROM and strengthening for improved right shoulder function STG Duration 05/04/22 Tray Delivery Aide Goal (LTG) Patient will be independent and compliant with progressive HEP for purposes of improving right shoulder ROM and strength for improved ability to use right UE LTG Duration 06/27/22 functional activity tolerance Impairment Quickdash UE disability index score 50% Short Term Goal (STG) Decrease score to no greater than 25% as measure of improved functional use of right UE STG Duration 05/04/22 Custodial Goal (LTG) Decrease score to no greater than 10% to allow patient to resume all usual activities with her shoulder including all work tasks, reaching overhead, behind her back, and ride her bike without an increase in pain. LTG Duration 06/27/22 Assessment Summary Assessment Good ROM achieved with shoulder flex and scaption with pulleys with minimal pain , IR more difficult. Fair tolerance for shoulder ext and ER. Cues for scapular activation and retraction with row and ER with TB. HEP updated. Kinesiotape applied right shoulder per RC technique. Ice and IFES for pain management. Patient demonstrated good understganding of HEP but will need further review for correct performance; urged pain-free ROM and intensity. Physical Therapy Plan Frequency and Duration Frequency of Treatment 2x/Week Duration of Treatment 12 weeks Plan of Care Start Date 03/27/22 Plan of Care End Date 06/27/22 Therapeutic Interventions Therapeutic Interventions Aquatic Therapy,Home Exercise Program,Manual Therapy,Patient /Caregiver Education,Self-Care /Home Management,Sensory Integration,Soft Tissue Mobilization,Taping, Therapeutic Activities, Therapeutic Exercises Modalities Cold Pack/Ice Massage,Electric Stimulation,Hot Packs, Iontophoresis,Ultrasound Next Visit Focus/Plan Next Note Type Treatment Note Next Visit Plan Continue progression of ther ex for right shoulder ROM and strengthening, scapular stabilization. Sidelyinig scapular mobilization and active shoulder flex. Trial supine wand ex, pull-downs with theraband facing away.
--- NOTE | 2022-04-12 14:30 | PT.OTN ---
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 x-ray negative. Will do further imaging if PT not helpful. Patient still working, no time off. Painful to reach overhead, behind her back, out to the side with ADL's and work. Has tried ice and heat, Tylenol and Ibuprofen. Prior Treatments and Tests x-ray negative Future Testing and Treatments Planned return to doctor if PT not helpful PT-OP-C Subjective Start: 03/23/22 16:54 Freq: Status: Active Protocol: Document 04/12/22 13:48 SP (Rec: 04/12/22 14:43 SP [id number]) OP-PT Subjective Patient Comments Patient Comments Pt stated pain still there, I like the ER HEP. PT-OP-H Neuro Start: 03/23/22 16:54 Freq: Status: Active Protocol: Document 03/27/22 13:48 SAK (Rec: 03/27/22 14:32 SAK [id number]) Sensation Evaluation Gross Sensation Gross Sensation WNL PT-OP-J Posture/Palpation/Skin Start: 03/23/22 16:54 Freq: Status: Active Protocol: Document 03/27/22 13:48 SAK (Rec: 03/27/22 14:32 SAK [id number]) Posture Evaluation Position Sitting T-Spine Posture Increased Kyphosis Scapula Posture (R) Protracted Arm Posture (R) Internally Rotated Palpation Assessment Location GH Palpation Location along joint line Palpation Findings Tenderness Palpation Details tenderness with light palpation Skin Assessment Edema Assessment right shoulder Comments none noted Other Assessments Skin Assessment Comments skin intact, no redness or warmth PT-OP-K Range of Motion Start: 03/23/22 16:54 Freq: Status: Active Protocol: Document 03/27/22 13:48 SAK (Rec: 03/27/22 14:32 SAK [id number]) Cervical Spine Range of Motion Cervical Spine Active Comments WNL, slight right UT tightness Shoulder Goniometric Range of Motion Shoulder Right Active Shoulder ROM WFL No Testing Position Sitting Flexion 152 Extension 16 Abduction 121 External Rotation at 45 degrees 40 Abduction Internal Rotation Behind Back (text) lateral buttock left Shoulder ROM WFL Yes Flexion 180 Extension 35 Abduction 180 External Rotation at 45 degrees 80 Abduction Internal Rotation Behind Back (text) T4 Elbow/Forearm Range of Motion Elbow/Forearm juan Elbow/Forearm ROM WFL Yes PT-OP-M Strength Start: 03/23/22 16:54 Freq: Status: Active Protocol: Document 03/27/22 13:48 SAK (Rec: 03/29/22 12:08 [facility] [id number]) Scapula Strength Scapula Manual Muscle Testing Right Elevation (C4) 3+ Fair+ Adduction 3+ Fair+ Abduction 3+ Fair+ Depression 3+ Fair+ Left Elevation (C4) 5 Normal Adduction 5 Normal Abduction 5 Normal Depression 5 Normal Shoulder Strength Shoulder Manual Muscle Testing Right Flexion 3- Fair- Extension 3- Fair- Abduction (C5) 3- Fair- External Rotation 3- Fair- Internal Rotation 3+ Fair+ Comments limited by pain, inability to move through full AROM Left Flexion 5 Normal Extension 5 Normal Abduction (C5) 5 Normal External Rotation 4+ Good+ Internal Rotation 4+ Good+ Elbow/Forearm Strength Elbow and Forearm Manual Muscle Testing Right Flexion (C6) 4- Good- Extension (C7) 4- Good- Comments limited by pain Left Flexion (C6) 5 Normal Extension (C7) 5 Normal PT-OP-Q Treatments Start: 03/23/22 16:54 Freq: Status: Active Protocol: Document 04/12/22 13:48 SP (Rec: 04/12/22 14:43 SP [id number]) Therapeutic Exercises Supine Exercises serratus press Supine Exercise Name added to HEP Side right Equipment Used wand Reps/Minutes x10 1 press Comments cued scap mobility shld flexion Supine Exercise Name added toHEP Side bilateral Equipment Used wand Reps/Minutes x10 Comments cued humeral depression OH, press- no signif decr in R shld pain butok do Sidelying Exercises shld ER Sidelying Exercise Name added to HEP Side right Resistance AROM x5 ok, her waterbottle 1/ 2 full x5 Comments cued painfree range & tolerant reps open book Sidelying Exercise Name trialed long arm and hand on head Comments tactile scapulothoracic- pain anterior shld so Hold Sitting Exercises resisted ER Sitting Exercise Name HEP reviewed Side right Resistance L1 TB anchored in door ( provided white tab) Reps/Minutes 10x Comments cued not into pain, range painfree shoulder IR Sitting Exercise Name DC doing standing with towel shoulder ext Sitting Exercise Name HEP review- stand Resistance wand, towel under arm Equipment Used mirror used for shld alignment awareness Reps/Minutes 10x, 2x/day Comments good form shoulder ER Sitting Exercise Name HEP reviewed-stand Resistance mirror used for shld alignment awareness Equipment Used wand, towel under arm Reps/Minutes 10x, 2x/day Comments cued 90 elbow alignment holding towel scapular squeeze Sitting Exercise Name incorporated with TH and other HEP Reps/Minutes 10x Standing Exercises R shld IR Standing Exercise Name added to HEP Side right Resistance AAROM behind back Equipment Used towel use, mirror for alignment feedback Reps/Minutes 5 reps x3-5 sec hold Comments cued adduction to opp pelvis then can assist up back, level shld in mirror row Standing Exercise Name HEP reviewed Side right Resistance AAROM Equipment Used L1 TB Reps/Minutes 10x Comments cued humeral inferior glide and row not behind trunk pendulum Reps/Minutes 10x ea Manual Therapy Treatment Soft Tissue Mobilization right UT, RC inser Body Location R RTC insertion, longhead bicep, distap pec Mobilization Type Cross-Friction,Myofascial Release,Sustained Pressure Intensity/Depth Moderate Body Position Supine Comments sensitive to pressure Joint Mobilizations GH Jt Joint R Direction AP, PA Grade I Body Position Hooklying Reps/Duration 20 s Comments not tolerant so stopped PT-OP-R Modalities Start: 03/23/22 16:54 Freq: Status: Active Protocol: Document 04/12/22 13:48 SP (Rec: 04/12/22 14:43 SP [id number]) Hot Pack/Cold Pack Treatment CP Location R shld Patient Position Hooklying Treatment Duration (minutes) 5 Patient Tolerance Good Comments welcoming end tx good response and reports performs at home, limited needed to go. PT-OP-T Assessment and Plan Start: 03/23/22 16:54 Freq: Status: Active Protocol: Document 04/12/22 13:48 SP (Rec: 04/12/22 14:43 SP [id number]) Physical Therapy Assessment Goals right shoulder ROM and strength impairment Impairment lacking full shoulder ROM and strength Short Term Goal (STG) Improve right shoulder active elevation to 170 deg, ER to 60 , and internal rotation to be able to reach to L1 behind her back all to improve her functinal use of right UE STG Duration 05/04/22 Fifth Grade Teacher Goal (LTG) Patient to demonstrate right shoulder ROM WNL and strength 5/5 to allow her to safely return to prior level of function. LTG Duration 06/27/22 lacking HEP Impairment No HEP Short Term Goal (STG) Patient to be instructed in HEP for purposes of right shoulder ROM and strengthening for improved right shoulder function STG Duration 05/04/22 Alf Goal (LTG) Patient will be independent and compliant with progressive HEP for purposes of improving right shoulder ROM and strength for improved ability to use right UE LTG Duration 06/27/22 functional activity tolerance Impairment Quickdash UE disability index score 50% Short Term Goal (STG) Decrease score to no greater than 25% as measure of improved functional use of right UE STG Duration 05/04/22 Fifth Grade Teacher Goal (LTG) Decrease score to no greater than 10% to allow patient to resume all usual activities with her shoulder including all work tasks, reaching overhead, behind her back, and ride her bike without an increase in pain. LTG Duration 06/27/22 Assessment Summary Assessment Pt responds well to active ther ex, cues for scap retract/depression awareness eccentric >concentric and inferior humeral glide during rows, FF and ER to allow space , improved less pain. Good response to added serratus press, FF supine, side ER. PRovided HOs. Physical Therapy Plan Frequency and Duration Frequency of Treatment 2x/Week Duration of Treatment 12 weeks Plan of Care Start Date 03/27/22 Plan of Care End Date 06/27/22 Therapeutic Interventions Therapeutic Interventions Aquatic Therapy,Home Exercise Program,Manual Therapy,Patient /Caregiver Education,Self-Care /Home Management,Sensory Integration,Soft Tissue Mobilization,Taping, Therapeutic Activities, Therapeutic Exercises Modalities Cold Pack/Ice Massage,Electric Stimulation,Hot Packs, Iontophoresis,Ultrasound Next Visit Focus/Plan Next Note Type Treatment Note Next Visit Plan Recheck: added SP, shld FF and ER against gravity and IR using towel in mirror. POC: Continue progression of ther ex for right shoulder ROM and strengthening, scapular stabilization. Sidelyinig scapular mobilization and active shoulder flex. Trial supine wand ex, pull-downs with theraband facing away.
--- NOTE | 2022-04-13 13:35 | PT-OP ANOTE ---
Pt called >24 hrs via televox cancel tomorrows appt, no reason given.
--- NOTE | 2022-04-19 15:22 | PT.OTN ---
Current Diagnoses Strain of unspecified muscle, fascia and tendon at shoulder and upper arm level, right arm, initial encounter (04/19/22) Physical Therapy Treatment Note PT-OP-A Visit Information Start: 03/23/22 16:54 Freq: Status: Active Protocol: Document 04/19/22 14:34 SP (Rec: 04/19/22 15:41 SP [id number]) Out-Patient Physical Therapy Visit Information Visit Information Visit Type Treatment Note Visit Start Time 14:34 Visit Stop Time 15:22 Total Visit Minutes 48 Visit Number 4 Number of DREDGE BOAT ENGINEER Visits 2 Evaluation Information Evaluation Date 03/27/22 PT-OP-B Current Condition Start: 03/23/22 16:54 Freq: Status: Active Protocol: Document 04/03/22 14:32 SAK (Rec: 04/03/22 15:14 SAK [id number]) Current Condition History of Current Condition Onset Date 11/28/21 (day before ) Current Complaints shoulder pain History of Current Condition tried to keep patient from falling to the floor, heard pop in her shoulder, has hurt ever since. x-ray negative. Will do further imaging if PT not helpful. Patient still working, no time off. Painful to reach overhead, behind her back, out to the side with ADL's and work. Has tried ice and heat, Tylenol and Ibuprofen. Prior Treatments and Tests x-ray negative Future Testing and Treatments Planned return to doctor if PT not helpful PT-OP-C Subjective Start: 03/23/22 16:54 Freq: Status: Active Protocol: Document 04/19/22 14:34 SP (Rec: 04/19/22 15:41 SP [id number]) OP-PT Subjective Patient Comments Patient Comments Pt stated doing HEP, not seeing significant improvement with pain reaching over head, better laying down. Will be returning to work a shift Apr 25. PT-OP-H Neuro Start: 03/23/22 16:54 Freq: Status: Active Protocol: Document 03/27/22 13:48 SAK (Rec: 03/27/22 14:32 SAK [id number]) Sensation Evaluation Gross Sensation Gross Sensation WNL PT-OP-J Posture/Palpation/Skin Start: 03/23/22 16:54 Freq: Status: Active Protocol: Document 03/27/22 13:48 SAK (Rec: 03/27/22 14:32 SAK [id number]) Posture Evaluation Position Sitting T-Spine Posture Increased Kyphosis Scapula Posture (R) Protracted Arm Posture (R) Internally Rotated Palpation Assessment Location GH Palpation Location along joint line Palpation Findings Tenderness Palpation Details tenderness with light palpation Skin Assessment Edema Assessment right shoulder Comments none noted Other Assessments Skin Assessment Comments skin intact, no redness or warmth PT-OP-K Range of Motion Start: 03/23/22 16:54 Freq: Status: Active Protocol: Document 03/27/22 13:48 [facility] (Rec: 03/27/22 14:32 [facility] [id number]) Cervical Spine Range of Motion Cervical Spine Active Comments WNL, slight right UT tightness Shoulder Goniometric Range of Motion Shoulder Right Active Shoulder ROM WFL No Testing Position Sitting Flexion 152 Extension 16 Abduction 121 External Rotation at 45 degrees 40 Abduction Internal Rotation Behind Back (text) lateral buttock left Shoulder ROM WFL Yes Flexion 180 Extension 35 Abduction 180 External Rotation at 45 degrees 80 Abduction Internal Rotation Behind Back (text) T4 Elbow/Forearm Range of Motion Elbow/Forearm juan Elbow/Forearm ROM WFL Yes PT-OP-M Strength Start: 03/23/22 16:54 Freq: Status: Active Protocol: Document 03/27/22 13:48 [facility] (Rec: 03/29/22 12:08 [facility] [id number]) Scapula Strength Scapula Manual Muscle Testing Right Elevation (C4) 3+ Fair+ Adduction 3+ Fair+ Abduction 3+ Fair+ Depression 3+ Fair+ Left Elevation (C4) 5 Normal Adduction 5 Normal Abduction 5 Normal Depression 5 Normal Shoulder Strength Shoulder Manual Muscle Testing Right Flexion 3- Fair- Extension 3- Fair- Abduction (C5) 3- Fair- External Rotation 3- Fair- Internal Rotation 3+ Fair+ Comments limited by pain, inability to move through full AROM Left Flexion 5 Normal Extension 5 Normal Abduction (C5) 5 Normal External Rotation 4+ Good+ Internal Rotation 4+ Good+ Elbow/Forearm Strength Elbow and Forearm Manual Muscle Testing Right Flexion (C6) 4- Good- Extension (C7) 4- Good- Comments limited by pain Left Flexion (C6) 5 Normal Extension (C7) 5 Normal PT-OP-Q Treatments Start: 03/23/22 16:54 Freq: Status: Active Protocol: Document 04/19/22 14:34 SP (Rec: 04/19/22 15:41 SP [id number]) Therapeutic Exercises Supine Exercises serratus press Supine Exercise Name reviewed HEP Side right Equipment Used wand Reps/Minutes x10 1 press Comments cued scap mobility- reported painfree shld flexion Supine Exercise Name reviewed HEP: 138 deg on 04/19 Side bilateral Equipment Used wand Reps/Minutes x10 Comments cued humeral depression OH, press- no signif decr in R shld pain butok do Sidelying Exercises shld ER Sidelying Exercise Name reviewed HEP- 04/19 Side right Resistance AROM Reps/Minutes x8 reps Comments good form, states uncomforatable anterior shld today 04/19. Sitting Exercises resisted ER Sitting Exercise Name HEP reviewed- standing Side right Resistance L1 TB anchored in door Reps/Minutes 10x Comments good range painfree neutral front 04/19 Standing Exercises wall walking Standing Exercise Name FF (in PT for now) Side right Resistance almost full range Reps/Minutes x6 reps Comments reports 7-03/29 pain but able to do-wanted know do home can work w/ pain R shld IR Standing Exercise Name discussion review across opp pelvis for now- HEP Side right Resistance AAROM behind back Equipment Used towel use, mirror for alignment feedback Reps/Minutes 5 reps x3-5 sec hold Comments cued adduction to opp pelvis then can assist up back, level shld in mirror row Standing Exercise Name HEP reviewed Side right Resistance AAROM Equipment Used L1 TB Reps/Minutes 10x Comments cued humeral inferior glide and row not behind trunk Manual Therapy Treatment Soft Tissue Mobilization right UT, RC inser Body Location R RTC insertion, longhead bicep, distap pec Mobilization Type Cross-Friction,Myofascial Release,Sustained Pressure Intensity/Depth Moderate Body Position Supine Comments sensitive to pressure Joint Mobilizations scapulothoracic jt Joint R Direction retraction depression Grade II Body Position Sidelying Reps/Duration 3 min Comments with manual STMs and instruction self ROM. GH Jt Joint R Direction AP, PA Grade I Body Position Hooklying Reps/Duration 20 s Comments not tolerant so stopped Taping right RC Body Location follow UT, deltoid Treatment Focus support, pain management Type of Tape kinesiotape Skin Inspection intact Comments 3 Y strips; see scanned RC taping technique in chart PT-OP-R Modalities Start: 03/23/22 16:54 Freq: Status: Active Protocol: Document 04/19/22 14:34 SP (Rec: 04/19/22 15:41 SP [id number]) Hot Pack/Cold Pack Treatment CP Location R shld Patient Position Sitting Treatment Duration (minutes) 10 Patient Tolerance Good Comments good feedback response and states uses cold and heat at times. PT-OP-T Assessment and Plan Start: 03/23/22 16:54 Freq: Status: Active Protocol: Document 04/19/22 14:34 SP (Rec: 04/19/22 15:41 SP [id number]) Physical Therapy Assessment Goals right shoulder ROM and strength impairment Impairment lacking full shoulder ROM and strength Short Term Goal (STG) Improve right shoulder active elevation to 170 deg, ER to 60 , and internal rotation to be able to reach to L1 behind her back all to improve her functinal use of right UE 04/19/22: progressing: supine dowel AAROM 138 deg FF, side ER AROM ok with no resistance little passed neutral front. STG Duration 05/04/22 Supervisor Billposting Goal (LTG) Patient to demonstrate right shoulder ROM WNL and strength 5/5 to allow her to safely return to prior level of function. LTG Duration 06/27/22 lacking HEP Impairment No HEP Short Term Goal (STG) Patient to be instructed in HEP for purposes of right shoulder ROM and strengthening for improved right shoulder function STG Duration 05/04/22 Supervisor Billposting Goal (LTG) Patient will be independent and compliant with progressive HEP for purposes of improving right shoulder ROM and strength for improved ability to use right UE LTG Duration 06/27/22 functional activity tolerance Impairment Quickdash UE disability index score 50% Short Term Goal (STG) Decrease score to no greater than 25% as measure of improved functional use of right UE STG Duration 05/04/22 [facility] Goal (LTG) Decrease score to no greater than 10% to allow patient to resume all usual activities with her shoulder including all work tasks, reaching overhead, behind her back, and ride her bike without an increase in pain. LTG Duration 06/27/22 Assessment Summary Assessment Pt responded responded well to supine ther ex, no pain standing ER against resistance to neutral vs sidelying AROM. Initiated wall walking FF with reports 7-8/10 pain but suprised able to do. Educated would prefer ther ex little to no pain with good undersanding not to work in to pain increasing. Benefits of movement is important but not at cost of intolerable pain.Good response to CP and utilizes it at home and contrast MHP. Physical Therapy Plan Frequency and Duration Frequency of Treatment 2x/Week Duration of Treatment 12 weeks Plan of Care Start Date 03/27/22 Plan of Care End Date 06/27/22 Therapeutic Interventions Therapeutic Interventions Aquatic Therapy,Home Exercise Program,Manual Therapy,Patient /Caregiver Education,Self-Care /Home Management,Sensory Integration,Soft Tissue Mobilization,Taping, Therapeutic Activities, Therapeutic Exercises Modalities Cold Pack/Ice Massage,Electric Stimulation,Hot Packs, Iontophoresis,Ultrasound Next Visit Focus/Plan Next Note Type Treatment Note Next Visit Plan Recheck: recheck towel R shld adduction, revisit wall walking. POC: Continue progression of ther ex for right shoulder ROM and strengthening, scapular stabilization. Sidelyinig scapular mobilization and active shoulder flex. Trial supine wand ex, pull-downs with theraband facing away.
--- NOTE | 2022-04-21 08:57 | PT.OTN ---
Current Diagnoses Strain of unspecified muscle, fascia and tendon at shoulder and upper arm level, right arm, initial encounter (04/21/22) Physical Therapy Treatment Note PT-OP-A Visit Information Start: 03/23/22 16:54 Freq: Status: Active Protocol: Document 04/21/22 08:19 SP (Rec: 04/21/22 09:02 SP [id number]) Out-Patient Physical Therapy Visit Information Visit Information Visit Type Treatment Note Visit Start Time 08:19 Visit Stop Time 08:57 Total Visit Minutes 38 Visit Number 5 Number of UNIT OPERATOR Visits 3 Evaluation Information Evaluation Date 03/27/22 PT-OP-B Current Condition Start: 03/23/22 16:54 Freq: Status: Active Protocol: Document 04/03/22 14:32 SAK (Rec: 04/03/22 15:14 SAK [id number]) Current Condition History of Current Condition Onset Date 11/28/21 (day before ) Current Complaints shoulder pain History of Current Condition tried to keep patient from falling to the floor, heard pop in her shoulder, has hurt ever since. x-ray negative. Will do further imaging if PT not helpful. Patient still working, no time off. Painful to reach overhead, behind her back, out to the side with ADL's and work. Has tried ice and heat, Tylenol and Ibuprofen. Prior Treatments and Tests x-ray negative Future Testing and Treatments Planned return to doctor if PT not helpful PT-OP-C Subjective Start: 03/23/22 16:54 Freq: Status: Active Protocol: Document 04/21/22 08:19 SP (Rec: 04/21/22 09:02 SP [id number]) OP-PT Subjective Patient Comments Patient Comments Pt reports getting little better, being careful when wall walking R shld not to push to far into pain, gets sore. PT-OP-H Neuro Start: 03/23/22 16:54 Freq: Status: Active Protocol: Document 03/27/22 13:48 SAK (Rec: 03/27/22 14:32 SAK [id number]) Sensation Evaluation Gross Sensation Gross Sensation WNL PT-OP-J Posture/Palpation/Skin Start: 03/23/22 16:54 Freq: Status: Active Protocol: Document 03/27/22 13:48 SAK (Rec: 03/27/22 14:32 SAK [id number]) Posture Evaluation Position Sitting T-Spine Posture Increased Kyphosis Scapula Posture (R) Protracted Arm Posture (R) Internally Rotated Palpation Assessment Location GH Palpation Location along joint line Palpation Findings Tenderness Palpation Details tenderness with light palpation Skin Assessment Edema Assessment right shoulder Comments none noted Other Assessments Skin Assessment Comments skin intact, no redness or warmth PT-OP-K Range of Motion Start: 03/23/22 16:54 Freq: Status: Active Protocol: Document 03/27/22 13:48 [facility] (Rec: 03/27/22 14:32 [facility] [id number]) Cervical Spine Range of Motion Cervical Spine Active Comments WNL, slight right UT tightness Shoulder Goniometric Range of Motion Shoulder Right Active Shoulder ROM WFL No Testing Position Sitting Flexion 152 Extension 16 Abduction 121 External Rotation at 45 degrees 40 Abduction Internal Rotation Behind Back (text) lateral buttock left Shoulder ROM WFL Yes Flexion 180 Extension 35 Abduction 180 External Rotation at 45 degrees 80 Abduction Internal Rotation Behind Back (text) T4 Elbow/Forearm Range of Motion Elbow/Forearm juan Elbow/Forearm ROM WFL Yes PT-OP-M Strength Start: 03/23/22 16:54 Freq: Status: Active Protocol: Document 03/27/22 13:48 [facility] (Rec: 03/29/22 12:08 [facility] [id number]) Scapula Strength Scapula Manual Muscle Testing Right Elevation (C4) 3+ Fair+ Adduction 3+ Fair+ Abduction 3+ Fair+ Depression 3+ Fair+ Left Elevation (C4) 5 Normal Adduction 5 Normal Abduction 5 Normal Depression 5 Normal Shoulder Strength Shoulder Manual Muscle Testing Right Flexion 3- Fair- Extension 3- Fair- Abduction (C5) 3- Fair- External Rotation 3- Fair- Internal Rotation 3+ Fair+ Comments limited by pain, inability to move through full AROM Left Flexion 5 Normal Extension 5 Normal Abduction (C5) 5 Normal External Rotation 4+ Good+ Internal Rotation 4+ Good+ Elbow/Forearm Strength Elbow and Forearm Manual Muscle Testing Right Flexion (C6) 4- Good- Extension (C7) 4- Good- Comments limited by pain Left Flexion (C6) 5 Normal Extension (C7) 5 Normal PT-OP-Q Treatments Start: 03/23/22 16:54 Freq: Status: Active Protocol: Document 04/21/22 08:19 SP (Rec: 04/21/22 09:02 SP [id number]) Therapeutic Exercises Supine Exercises serratus press Supine Exercise Name reviewed HEP Side right Equipment Used wand Reps/Minutes x10 1 press Comments cued scap mobility- reported painfree shld flexion Supine Exercise Name reviewed HEP: 160 deg on 2 by 8 deg Side bilateral Equipment Used wand Reps/Minutes x10 Comments cued humeral depression OH, press- no signif decr in R shld pain butok do Sidelying Exercises abd Sidelying Exercise Name added next tx open book Sidelying Exercise Name hand on head and long arm- added to HEP Side right Resistance AROM Reps/Minutes x5 reps with good feedback response Comments tactile scapulothoracic- little pinching over longhead bicep CROW ok long ar Sitting Exercises pulleys Sitting Exercise Name flexion, scaption, abduction Side right Resistance PROM Reps/Minutes 10x ea direction Comments less pain after allow scap depression relax end feel Standing Exercises shld IR/ ER Standing Exercise Name added to HEP Side right Resistance TB #1 Equipment Used towel under arm Reps/Minutes x5 reps Comments tactile cue for humeral head posterior and inferior glide small range wall walking Standing Exercise Name FF - HEP review Side right Resistance almost full range Reps/Minutes x6 reps Comments improved almost full ROM, R shld IR Standing Exercise Name discussion review across opp pelvis for now- HEP Side right Resistance AAROM behind back Equipment Used towel use, mirror for alignment feedback Reps/Minutes 5 reps x3-5 sec hold Comments cued adduction to opp pelvis then can assist up back, level shld in mirror row Standing Exercise Name HEP reviewed Side right Resistance AAROM Equipment Used L1 TB Reps/Minutes 10x 2 Comments cued humeral/scap inferior glide con/ecc row arm to side not behind trunk Manual Therapy Treatment Soft Tissue Mobilization right UT, RC inser Body Location R RTC insertion, longhead bicep, distap pec Mobilization Type Cross-Friction,Myofascial Release,Sustained Pressure Intensity/Depth Moderate Body Position Supine Comments sensitive over long head bicep , instructed self gentle pressure application and use CP for pain and is already doing. Joint Mobilizations scapulothoracic jt Joint R Direction retraction depression Grade II Body Position Sidelying Reps/Duration 3 min Comments with manual STMs and instruction self ROM. GH Jt Joint R Direction AP, PA Grade I Body Position Hooklying Reps/Duration 20 s Comments not tolerant so stopped PT-OP-R Modalities Start: 03/23/22 16:54 Freq: Status: Active Protocol: Document 04/19/22 14:34 SP (Rec: 04/19/22 15:41 SP [id number]) Hot Pack/Cold Pack Treatment CP Location R shld Patient Position Sitting Treatment Duration (minutes) 10 Patient Tolerance Good Comments good feedback response and states uses cold and heat at times. PT-OP-T Assessment and Plan Start: 03/23/22 16:54 Freq: Status: Active Protocol: Document 04/21/22 08:19 SP (Rec: 04/21/22 09:02 SP [id number]) Physical Therapy Assessment Goals right shoulder ROM and strength impairment Impairment lacking full shoulder ROM and strength Short Term Goal (STG) Improve right shoulder active elevation to 170 deg, ER to 60 , and internal rotation to be able to reach to L1 behind her back all to improve her functinal use of right UE 04/19/22: progressing: supine dowel AAROM 138 deg FF, side ER AROM ok with no resistance little passed neutral front. STG Duration 05/04/22 Mechanical Handyman Goal (LTG) Patient to demonstrate right shoulder ROM WNL and strength 5/5 to allow her to safely return to prior level of function. LTG Duration 06/27/22 lacking HEP Impairment No HEP Short Term Goal (STG) Patient to be instructed in HEP for purposes of right shoulder ROM and strengthening for improved right shoulder function STG Duration 05/04/22 Mechanical Handyman Goal (LTG) Patient will be independent and compliant with progressive HEP for purposes of improving right shoulder ROM and strength for improved ability to use right UE LTG Duration 06/27/22 functional activity tolerance Impairment Quickdash UE disability index score 50% Short Term Goal (STG) Decrease score to no greater than 25% as measure of improved functional use of right UE STG Duration 05/04/22 Snf Goal (LTG) Decrease score to no greater than 10% to allow patient to resume all usual activities with her shoulder including all work tasks, reaching overhead, behind her back, and ride her bike without an increase in pain. LTG Duration 06/27/22 Progress Towards Goals Progress Towards Goals Progressing Toward Goals Progress Comments Improved AAROM FF supine 160 deg today, improvement 8 deg since last tx. Assessment Summary Assessment Pt improved AAROM today, gets little pinching during rows/ER but decreases with tactile cues humeral head post/ inferior glide. Able to incorporate open book and tricep ext today with improvement in mobility and almost painfree to continue at home, HOs provided. Physical Therapy Plan Frequency and Duration Frequency of Treatment 2x/Week Duration of Treatment 12 weeks Plan of Care Start Date 03/27/22 Plan of Care End Date 06/27/22 Therapeutic Interventions Therapeutic Interventions Aquatic Therapy,Home Exercise Program,Manual Therapy,Patient /Caregiver Education,Self-Care /Home Management,Sensory Integration,Soft Tissue Mobilization,Taping, Therapeutic Activities, Therapeutic Exercises Modalities Cold Pack/Ice Massage,Electric Stimulation,Hot Packs, Iontophoresis,Ultrasound Next Visit Focus/Plan Next Note Type Treatment Note Next Visit Plan Recheck: continue towel R shld adduction, revisit open book, tricep ext and rows TB. POC: Continue progression of ther ex for right shoulder ROM and strengthening, scapular stabilization. Sidelyinig scapular mobilization and active shoulder flex. Trial supine wand ex, pull-downs with theraband facing away.
--- NOTE | 2022-04-28 13:45 | PT.OTN ---
Current Diagnoses Strain of unspecified muscle, fascia and tendon at shoulder and upper arm level, right arm, initial encounter (04/28/22) Physical Therapy Treatment Note PT-OP-A Visit Information Start: 03/23/22 16:54 Freq: Status: Active Protocol: Document 04/28/22 13:05 SP (Rec: 04/28/22 13:48 SP [id number]) Out-Patient Physical Therapy Visit Information Visit Information Visit Type Treatment Note Visit Start Time 13:05 Visit Stop Time 13:45 Total Visit Minutes 40 Visit Number 6 Number of [employer] Visits 4 Evaluation Information Evaluation Date 03/27/22 PT-OP-B Current Condition Start: 03/23/22 16:54 Freq: Status: Active Protocol: Document 04/03/22 14:32 SAK (Rec: 04/03/22 15:14 SAK [id number]) Current Condition History of Current Condition Onset Date 11/28/21 (day before ) Current Complaints shoulder pain History of Current Condition tried to keep patient from falling to the floor, heard pop in her shoulder, has hurt ever since. x-ray negative. Will do further imaging if PT not helpful. Patient still working, no time off. Painful to reach overhead, behind her back, out to the side with ADL's and work. Has tried ice and heat, Tylenol and Ibuprofen. Prior Treatments and Tests x-ray negative Future Testing and Treatments Planned return to doctor if PT not helpful PT-OP-C Subjective Start: 03/23/22 16:54 Freq: Status: Active Protocol: Document 04/28/22 13:05 SP (Rec: 04/28/22 13:48 SP [id number]) OP-PT Subjective Patient Comments Patient Comments Pt reports doing better with supine ex and movement usign wand. PT-OP-H Neuro Start: 03/23/22 16:54 Freq: Status: Active Protocol: Document 03/27/22 13:48 SAK (Rec: 03/27/22 14:32 SAK [id number]) Sensation Evaluation Gross Sensation Gross Sensation WNL PT-OP-J Posture/Palpation/Skin Start: 03/23/22 16:54 Freq: Status: Active Protocol: Document 03/27/22 13:48 SAK (Rec: 03/27/22 14:32 SAK [id number]) Posture Evaluation Position Sitting T-Spine Posture Increased Kyphosis Scapula Posture (R) Protracted Arm Posture (R) Internally Rotated Palpation Assessment Location GH Palpation Location along joint line Palpation Findings Tenderness Palpation Details tenderness with light palpation Skin Assessment Edema Assessment right shoulder Comments none noted Other Assessments Skin Assessment Comments skin intact, no redness or warmth PT-OP-K Range of Motion Start: 03/23/22 16:54 Freq: Status: Active Protocol: Document 04/28/22 13:05 SP (Rec: 04/28/22 13:48 SP [id number]) Shoulder Goniometric Range of Motion Shoulder Right Active Shoulder ROM WFL No Testing Position Sitting Flexion 157 Extension 32 Abduction 142 External Rotation at 45 degrees 88 Abduction Internal 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 seated RUE AROM: FF +5 deg ABD + 20 deg Ext +15 deg ER+ 44 deg IR behind back to L buttocks R sidelying RUE AROM: 149 deg ABD PT-OP-M Strength Start: 03/23/22 16:54 Freq: Status: Active Protocol: Document 03/27/22 13:48 SAK (Rec: 03/29/22 12:08 SAK [id number]) Scapula Strength Scapula Manual Muscle Testing Right Elevation (C4) 3+ Fair+ Adduction 3+ Fair+ Abduction 3+ Fair+ Depression 3+ Fair+ Left Elevation (C4) 5 Normal Adduction 5 Normal Abduction 5 Normal Depression 5 Normal Shoulder Strength Shoulder Manual Muscle Testing Right Flexion 3- Fair- Extension 3- Fair- Abduction (C5) 3- Fair- External Rotation 3- Fair- Internal Rotation 3+ Fair+ Comments limited by pain, inability to move through full AROM Left Flexion 5 Normal Extension 5 Normal Abduction (C5) 5 Normal External Rotation 4+ Good+ Internal Rotation 4+ Good+ Elbow/Forearm Strength Elbow and Forearm Manual Muscle Testing Right Flexion (C6) 4- Good- Extension (C7) 4- Good- Comments limited by pain Left Flexion (C6) 5 Normal Extension (C7) 5 Normal PT-OP-Q Treatments Start: 03/23/22 16:54 Freq: Status: Active Protocol: Document 04/28/22 13:05 SP (Rec: 04/28/22 13:48 SP [id number]) Therapeutic Exercises Supine Exercises serratus press Supine Exercise Name reviewed HEP Side right Equipment Used wand Reps/Minutes x10 1 press Comments cued scap mobility- reported painfree shld flexion Supine Exercise Name reviewed HEP: 165 deg on 04/28 by 5 deg Side bilateral Equipment Used wand Reps/Minutes x10 Comments cued humeral depression OH, press- no signif decr in R shld pain butok do Prone Exercises elbow plank Prone Exercise Name reviewed past yoga Reps/Minutes 30s, 40s Comments knees elbows Sidelying Exercises abd Sidelying Exercise Name added to HEP Side right Resistance AROM 149 deg Reps/Minutes x5 reps Comments good form, cued stacked shlds shld ER Sidelying Exercise Name uncomfortable stopped 04/27 Side right Resistance AROM Reps/Minutes x8 reps Comments good form, states uncomforatable anterior shld today 04/19. open book Sidelying Exercise Name hand on head and long arm- added to HEP Side right Resistance AROM Reps/Minutes x5 reps with good feedback response long and short hand on head Comments good feedback Sitting Exercises Ys off wall Sitting Exercise Name added to HEP- lift off wall Side bilateral Resistance AROM Equipment Used (standing) Reps/Minutes x5 reps Comments good form, painfree resisted ER Sitting Exercise Name standing Ws Side right Resistance L1 TB anchored in door Reps/Minutes 10x Comments good range painfree neutral front 04/19 Standing Exercises Ws/ ER/ scap retraction Standing Exercise Name added to HEP Side bilateral Resistance TB #1 Equipment Used mirror for posture Reps/Minutes x10 Comments good ER/ scap retraction feedback, feels good shld IR/ ER Standing Exercise Name reviewed HEP Side right Resistance TB #1 Equipment Used towel under arm Reps/Minutes x5 reps Comments tactile cue for humeral head posterior and inferior glide small range wall walking Standing Exercise Name FF wall slide Side right Resistance full end range- ease of movement demonstrated Reps/Minutes x6 reps Comments improved almost full ROM, does have pain but goes away when return start R shld IR Standing Exercise Name good AROM reach across pelvis 04/28, added towel LUE assist Side right Resistance AAROM behind back Equipment Used towel use, mirror for alignment feedback Reps/Minutes 3 reps 10s hold Comments L3 today row Standing Exercise Name HEP reviewed Side right Resistance AAROM Equipment Used L1 TB Reps/Minutes 10x 2 Comments cued no UT, ext to side, painfree today. PT-OP-R Modalities Start: 03/23/22 16:54 Freq: Status: Active Protocol: Document 04/19/22 14:34 SP (Rec: 04/19/22 15:41 SP [id number]) Hot Pack/Cold Pack Treatment CP Location R shld Patient Position Sitting Treatment Duration (minutes) 10 Patient Tolerance Good Comments good feedback response and states uses cold and heat at times. PT-OP-T Assessment and Plan Start: 03/23/22 16:54 Freq: Status: Active Protocol: Document 04/28/22 13:05 SP (Rec: 04/28/22 13:48 SP [id number]) Physical Therapy Assessment Goals right shoulder ROM and strength impairment Impairment lacking full shoulder ROM and strength Short Term Goal (STG) Improve right shoulder active elevation to 170 deg, ER to 60 , and internal rotation to be able to reach to L1 behind her back all to improve her functinal use of right UE 04/19/22: progressing: supine dowel AAROM 138 deg FF, side ER AROM ok with no resistance little passed neutral front. STG Duration 05/04/22 L D Rn Goal (LTG) Patient to demonstrate right shoulder ROM WNL and strength 5/5 to allow her to safely return to prior level of function. LTG Duration 06/27/22 lacking HEP Impairment No HEP Short Term Goal (STG) Patient to be instructed in HEP for purposes of right shoulder ROM and strengthening for improved right shoulder function STG Duration 05/04/22 L D Rn Goal (LTG) Patient will be independent and compliant with progressive HEP for purposes of improving right shoulder ROM and strength for improved ability to use right UE LTG Duration 06/27/22 functional activity tolerance Impairment Quickdash UE disability index score 50% Short Term Goal (STG) Decrease score to no greater than 25% as measure of improved functional use of right UE STG Duration 05/04/22 L D Rn Goal (LTG) Decrease score to no greater than 10% to allow patient to resume all usual activities with her shoulder including all work tasks, reaching overhead, behind her back, and ride her bike without an increase in pain. LTG Duration 06/27/22 Progress Towards Goals Progress Towards Goals Progressing Toward Goals Progress Comments 04/28/22 supine: R UE AAROM wand 165deg FF. seated RUE AROM: FF +5 deg ABD + 20 deg Ext +15 deg ER+ 44 deg IR behind back to L buttocks SIdelying AROM: R shld ABD 149 deg Assessment Summary Assessment Pt is making great gains in ROM. good form HEP. Tolerated added Ys off wall, reviewedself plank off knees and added towel IR behind back with no adverse affect. Physical Therapy Plan Frequency and Duration Frequency of Treatment 2x/Week Duration of Treatment 12 weeks Plan of Care Start Date 03/27/22 Plan of Care End Date 06/27/22 Therapeutic Interventions Therapeutic Interventions Aquatic Therapy,Home Exercise Program,Manual Therapy,Patient /Caregiver Education,Self-Care /Home Management,Sensory Integration,Soft Tissue Mobilization,Taping, Therapeutic Activities, Therapeutic Exercises Modalities Cold Pack/Ice Massage,Electric Stimulation,Hot Packs, Iontophoresis,Ultrasound Next Visit Focus/Plan Next Note Type Treatment Note Next Visit Plan REcheck HEP. POC: Continue progression of ther ex for right shoulder ROM and strengthening, scapular stabilization. Sidelyinig scapular mobilization and active shoulder flex. Trial supine wand ex, pull-downs with theraband facing away.
--- NOTE | 2022-05-05 11:43 | PT-OP ANOTE ---
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
--- NOTE | 2022-05-09 14:40 | PT.OTN ---
Current Diagnoses Strain of unspecified muscle, fascia and tendon at shoulder and upper arm level, right arm, initial encounter (05/09/22) Physical Therapy Treatment Note PT-OP-A Visit Information Start: 03/23/22 16:54 Freq: Status: Active Protocol: Document 05/09/22 13:55 LRN (Rec: 05/09/22 13:54 LRN [id number]) Out-Patient Physical Therapy Visit Information Visit Information Visit Type Treatment Note Visit Start Time 13:55 Visit Stop Time 14:34 Total Visit Minutes 39 Visit Number 7 Evaluation Information Evaluation Date 03/27/22 PT-OP-B Current Condition Start: 03/23/22 16:54 Freq: Status: Active Protocol: Document 04/03/22 14:32 SAK (Rec: 04/03/22 15:14 SAK [id number]) Current Condition History of Current Condition Onset Date 11/28/21 (day before ) Current Complaints shoulder pain History of Current Condition tried to keep patient from falling to the floor, heard pop in her shoulder, has hurt ever since. x-ray negative. Will do further imaging if PT not helpful. Patient still working, no time off. Painful to reach overhead, behind her back, out to the side with ADL's and work. Has tried ice and heat, Tylenol and Ibuprofen. Prior Treatments and Tests x-ray negative Future Testing and Treatments Planned return to doctor if PT not helpful PT-OP-C Subjective Start: 03/23/22 16:54 Freq: Status: Active Protocol: Document 05/09/22 13:55 LRN (Rec: 05/09/22 13:54 LRN [id number]) OP-PT Subjective Patient Comments Patient Comments Pain is with ROM. Less pain with taking off sports bra and putting on top. PT-OP-H Neuro Start: 03/23/22 16:54 Freq: Status: Active Protocol: Document 03/27/22 13:48 SAK (Rec: 03/27/22 14:32 SAK [id number]) Sensation Evaluation Gross Sensation Gross Sensation WNL PT-OP-J Posture/Palpation/Skin Start: 03/23/22 16:54 Freq: Status: Active Protocol: Document 03/27/22 13:48 SAK (Rec: 03/27/22 14:32 SAK [id number]) Posture Evaluation Position Sitting T-Spine Posture Increased Kyphosis Scapula Posture (R) Protracted Arm Posture (R) Internally Rotated Palpation Assessment Location GH Palpation Location along joint line Palpation Findings Tenderness Palpation Details tenderness with light palpation Skin Assessment Edema Assessment right shoulder Comments none noted Other Assessments Skin Assessment Comments skin intact, no redness or warmth PT-OP-K Range of Motion Start: 03/23/22 16:54 Freq: Status: Active Protocol: Document 04/28/22 13:05 SP (Rec: 04/28/22 13:48 SP [id number]) Shoulder Goniometric Range of Motion Shoulder Right Active Shoulder ROM WFL No Testing Position Sitting Flexion 157 Extension 32 Abduction 142 External Rotation at 45 degrees 88 Abduction Internal Rotation Behind 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 seated RUE AROM: FF +5 deg ABD + 20 deg Ext +15 deg ER+ 44 deg IR behind back to L buttocks R sidelying RUE AROM: 149 deg ABD PT-OP-M Strength Start: 03/23/22 16:54 Freq: Status: Active Protocol: Document 03/27/22 13:48 SAK (Rec: 03/29/22 12:08 SAK [id number]) Scapula Strength Scapula Manual Muscle Testing Right Elevation (C4) 3+ Fair+ Adduction 3+ Fair+ Abduction 3+ Fair+ Depression 3+ Fair+ Left Elevation (C4) 5 Normal Adduction 5 Normal Abduction 5 Normal Depression 5 Normal Shoulder Strength Shoulder Manual Muscle Testing Right Flexion 3- Fair- Extension 3- Fair- Abduction (C5) 3- Fair- External Rotation 3- Fair- Internal Rotation 3+ Fair+ Comments limited by pain, inability to move through full AROM Left Flexion 5 Normal Extension 5 Normal Abduction (C5) 5 Normal External Rotation 4+ Good+ Internal Rotation 4+ Good+ Elbow/Forearm Strength Elbow and Forearm Manual Muscle Testing Right Flexion (C6) 4- Good- Extension (C7) 4- Good- Comments limited by pain Left Flexion (C6) 5 Normal Extension (C7) 5 Normal PT-OP-Q Treatments Start: 03/23/22 16:54 Freq: Status: Active Protocol: Document 05/09/22 13:55 LRN (Rec: 05/09/22 13:59 LRN [id number]) Therapeutic Exercises Supine Exercises Lat pull down Supine Exercise Name Lat pull down Side bilateral Reps/Minutes 10x serratus press Supine Exercise Name reviewed HEP Side right Equipment Used wand Reps/Minutes 10x 3 Comments cued scap mobility- reported painfree shld flexion Supine Exercise Name Active and AAROM: 148 deg's. 165 deg on 04/28 by 5 deg Side bilateral Equipment Used wand Reps/Minutes 6' Comments cued humeral depression [place], press- no signif decr in R shld pain butok do Sitting Exercises Ys off wall Sitting Exercise Name See standing ex resisted ER Sitting Exercise Name standing Ws Side right Reps/Minutes 10x Comments No pain complaints. Standing Exercises Y's off wall Standing Exercise Name Y lift off wall - HEP Side bilateral Resistance AROM Reps/Minutes 10x reps Comments good form, painfree Ws/ ER/ scap retraction Standing Exercise Name WS/ER/Scap retract - HEP Side bilateral Resistance TB #1 Equipment Used mirror for posture Reps/Minutes 2x10 Comments good ER/ scap retraction feedback, feels good shld IR/ ER Standing Exercise Name reviewed HEP Side right Resistance TB #1 Equipment Used towel under arm Reps/Minutes x5 reps Comments tactile cue for humeral head posterior and inferior glide small range wall walking Standing Exercise Name FF wall slide Side right Resistance full end range- ease of movement demonstrated Reps/Minutes x6 reps Comments Full ROM after a few reps, does have pain but goes away when return start R shld IR Standing Exercise Name good AROM reach across pelvis 04/28, added towel LUE assist Side right Resistance AAROM behind back Equipment Used towel use, mirror for alignment feedback Reps/Minutes 10s hold x 10 Comments L2 with towel assist PT-OP-R Modalities Start: 03/23/22 16:54 Freq: Status: Active Protocol: Document 04/19/22 14:34 SP (Rec: 04/19/22 15:41 SP [id number]) Hot Pack/Cold Pack Treatment CP Location R shld Patient Position Sitting Treatment Duration (minutes) 10 Patient Tolerance Good Comments good feedback response and states uses cold and heat at times. PT-OP-T Assessment and Plan Start: 03/23/22 16:54 Freq: Status: Active Protocol: Document 05/09/22 13:55 LRN (Rec: 05/09/22 13:54 LRN [id number]) Physical Therapy Assessment Goals right shoulder ROM and strength impairment Impairment lacking full shoulder ROM and strength Short Term Goal (STG) Improve right shoulder active elevation to 170 deg, ER to 60 , and internal rotation to be able to reach to L1 behind her back all to improve her functinal use of right UE 04/19/22: progressing: supine dowel AAROM 138 deg FF, side ER AROM ok with no resistance little passed neutral front. STG Duration 05/04/22 Half-Way Goal (LTG) Patient to demonstrate right shoulder ROM WNL and strength 5/5 to allow her to safely return to prior level of function. LTG Duration 06/27/22 lacking HEP Impairment No HEP Short Term Goal (STG) Patient to be instructed in HEP for purposes of right shoulder ROM and strengthening for improved right shoulder function STG Duration 05/04/22 Half-Way Goal (LTG) Patient will be independent and compliant with progressive HEP for purposes of improving right shoulder ROM and strength for improved ability to use right UE LTG Duration 06/27/22 functional activity tolerance Impairment Quickdash UE disability index score 50% Short Term Goal (STG) Decrease score to no greater than 25% as measure of improved functional use of right UE STG Duration 05/04/22 Half-Way Goal (LTG) Decrease score to no greater than 10% to allow patient to resume all usual activities with her shoulder including all work tasks, reaching overhead, behind her back, and ride her bike without an increase in pain. LTG Duration 06/27/22 Assessment Summary Assessment Pt Standing R shoulder PROM with arm on wall is 180 deg's, but in supine pt tolerates 150 deg's; therfore in standing pt is getting thoracic mob with shoulder flex. Strengthening of scapular stabilizers is needed . Pt GHJ mechanics need training for flexion motion. Physical Therapy Plan Frequency and Duration Frequency of Treatment 2x/Week Duration of Treatment 12 weeks Plan of Care Start Date 03/27/22 Plan of Care End Date 06/27/22 Next Visit Focus/Plan Next Note Type Treatment Note Next Visit Plan POC: Continue progression of ther ex for right shoulder ROM and strengthening, scapular stabilization. Sidelyinig scapular mobilization and active shoulder flex. Trial supine wand ex, pull-downs with theraband facing away.
--- NOTE | 2022-05-19 09:47 | PT.OTN ---
Current Diagnoses Strain of unspecified muscle, fascia and tendon at shoulder and upper arm level, right arm, initial encounter (05/19/22) Physical Therapy Treatment Note PT-OP-A Visit Information Start: 03/23/22 16:54 Freq: Status: Active Protocol: Document 05/19/22 09:00 DCW (Rec: 05/19/22 09:47 DC [id number]) Out-Patient Physical Therapy Visit Information Visit Information Visit Type Treatment Note Visit Start Time 09:00 Visit Stop Time 09:45 Total Visit Minutes 45 Visit Number 8 Number of HIDE SPLITTER Visits 0 Evaluation Information Evaluation Date 03/27/22 PT-OP-B Current Condition Start: 03/23/22 16:54 Freq: Status: Active Protocol: Document 04/03/22 14:32 SAK (Rec: 04/03/22 15:14 SAK [id number]) Current Condition History of Current Condition Onset Date 11/28/21 (day before ) Current Complaints shoulder pain History of Current Condition tried to keep patient from falling to the floor, heard pop in her shoulder, has hurt ever since. x-ray negative. Will do further imaging if PT not helpful. Patient still working, no time off. Painful to reach overhead, behind her back, out to the side with ADL's and work. Has tried ice and heat, Tylenol and Ibuprofen. 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 PT-OP-H Neuro Start: 03/23/22 16:54 Freq: Status: Active Protocol: Document 03/27/22 13:48 SAK (Rec: 03/27/22 14:32 SAK [id number]) Sensation Evaluation Gross Sensation Gross Sensation WNL PT-OP-J Posture/Palpation/Skin Start: 03/23/22 16:54 Freq: Status: Active Protocol: Document 03/27/22 13:48 SAK (Rec: 03/27/22 14:32 SAK [id number]) Posture Evaluation Position Sitting T-Spine Posture Increased Kyphosis Scapula Posture (R) Protracted Arm Posture (R) Internally Rotated Palpation Assessment Location GH Palpation Location along joint line Palpation Findings Tenderness Palpation Details tenderness with light palpation Skin Assessment Edema Assessment right shoulder Comments none noted Other Assessments Skin Assessment Comments skin intact, no redness or warmth PT-OP-K Range of Motion Start: 03/23/22 16:54 Freq: Status: Active Protocol: Document 04/28/22 13:05 SP (Rec: 04/28/22 13:48 SP [id number]) Shoulder Goniometric Range of Motion Shoulder Right Active Shoulder ROM WFL No Testing Position Sitting Flexion 157 Extension 32 Abduction 142 External Rotation at 45 degrees 88 Abduction Internal Rotation Behind Back (text) rotoformer backtender L buttock Comments 04/28/22 supine: R UE AAROM wand 165deg FF. seated RUE AROM: FF +5 deg ABD + 20 deg Ext +15 deg ER+ 44 deg IR behind back to L buttocks R sidelying RUE AROM: 149 deg ABD PT-OP-M Strength Start: 03/23/22 16:54 Freq: Status: Active Protocol: Document 03/27/22 13:48 SAK (Rec: 03/29/22 12:08 SAK [id number]) Scapula Strength Scapula Manual Muscle Testing Right Elevation (C4) 3+ Fair+ Adduction 3+ Fair+ Abduction 3+ Fair+ Depression 3+ Fair+ Left Elevation (C4) 5 Normal Adduction 5 Normal Abduction 5 Normal Depression 5 Normal Shoulder Strength Shoulder Manual Muscle Testing Right Flexion 3- Fair- Extension 3- Fair- Abduction (C5) 3- Fair- External Rotation 3- Fair- Internal Rotation 3+ Fair+ Comments limited by pain, inability to move through full AROM Left Flexion 5 Normal Extension 5 Normal Abduction (C5) 5 Normal External Rotation 4+ Good+ Internal Rotation 4+ Good+ Elbow/Forearm Strength Elbow and Forearm Manual Muscle Testing Right Flexion (C6) 4- Good- Extension (C7) 4- Good- Comments limited by pain Left Flexion (C6) 5 Normal Extension (C7) 5 Normal PT-OP-Q Treatments Start: 03/23/22 16:54 Freq: Status: Active Protocol: Document 05/19/22 09:00 DCW (Rec: 05/19/22 09:47 DCW [id number]) Cardio Equipment Upper Body Ergometer (UBE) Duration (Minutes) 4 Seat Position 10 Height 2.5 Therapeutic Exercises Supine Exercises serratus press Supine Exercise Name reviewed HEP Side right Equipment Used wand Reps/Minutes 10x 3 Comments cued scap mobility- reported pain along triceps shld flexion Supine Exercise Name Active and AAROM Side bilateral Equipment Used wand Reps/Minutes 6' Comments cued humeral depression OH Sitting Exercises IR/ER Sitting Exercise Name Shoulder IR/ER in 90/90 Resistance Yellow ball - 2.2 lbs Comments Seated in chair, arm resting on table Standing Exercises resisted side-stepping Standing Exercise Name Resisted UE side-stepping Resistance Yellow Y's off wall Standing Exercise Name Y lift off wall Side bilateral Resistance AROM Reps/Minutes 10x reps Comments good form, painfree wall walking Standing Exercise Name FF wall slide Side right Resistance full end range- ease of movement demonstrated Reps/Minutes x6 reps Comments Full ROM after a few reps, does have pain but goes away when return start Manual Therapy Treatment Soft Tissue Mobilization right UT, RC inser Body Location R RTC insertion, longhead bicep, distap pec Mobilization Type Cross-Friction,Myofascial Release,Sustained Pressure Intensity/Depth Moderate Body Position Supine Comments sensitive over long head bicep Joint Mobilizations GH Jt Joint R Direction AP, PA Grade I Body Position Hooklying Taping right RC Body Location follow UT, deltoid Treatment Focus support, pain management Type of Tape kinesiotape Skin Inspection intact Comments 3 Y strips; see scanned RC taping technique in chart PT-OP-R Modalities Start: 03/23/22 16:54 Freq: Status: Active Protocol: Document 04/19/22 14:34 SP (Rec: 04/19/22 15:41 SP [id number]) Hot Pack/Cold Pack Treatment CP Location R shld Patient Position Sitting Treatment Duration (minutes) 10 Patient Tolerance Good Comments good feedback response and states uses cold and heat at times. PT-OP-T Assessment and Plan Start: 03/23/22 16:54 Freq: Status: Active Protocol: Document 05/19/22 09:00 DCW (Rec: 05/19/22 09:47 DCW [id number]) Physical Therapy Assessment Impairments Impairments Functional Activities,Pain,ROM ,Strength Goals right shoulder ROM and strength impairment Impairment lacking full shoulder ROM and strength Short Term Goal (STG) Improve right shoulder active elevation to 170 deg, ER to 60 , and internal rotation to be able to reach to L1 behind her back all to improve her functinal use of right UE 04/19/22: progressing: supine dowel AAROM 138 deg FF, side ER AROM ok with no resistance little passed neutral front. STG Duration 05/04/22 Care Home Goal (LTG) Patient to demonstrate right shoulder ROM WNL and strength 5/5 to allow her to safely return to prior level of function. LTG Duration 06/27/22 lacking HEP Impairment No HEP Short Term Goal (STG) Patient to be instructed in HEP for purposes of right shoulder ROM and strengthening for improved right shoulder function STG Duration 05/04/22 Supervisor Floor Assembly Goal (LTG) Patient will be independent and compliant with progressive HEP for purposes of improving right shoulder ROM and strength for improved ability to use right UE LTG Duration 06/27/22 functional activity tolerance Impairment Quickdash UE disability index score 50% Short Term Goal (STG) Decrease score to no greater than 25% as measure of improved functional use of right UE STG Duration 05/04/22 Care Home Goal (LTG) Decrease score to no greater than 10% to allow patient to resume all usual activities with her shoulder including all work tasks, reaching overhead, behind her back, and ride her bike without an increase in pain. LTG Duration 06/27/22 Assessment Summary Assessment Pt continues to struggle with R shoulder function, fairly limited with her work activities. Noted K-tape has helped a bit in the past. May be at the point where she could benefit from advanced imaging to rule in/out underlying structural damage. Physical Therapy Plan Frequency and Duration Frequency of Treatment 2x/Week Plan of Care Start Date 03/27/22 Plan of Care End Date 06/27/22 Therapeutic Interventions Therapeutic Interventions Aquatic Therapy,Home Exercise Program,Manual Therapy,Patient /Caregiver Education,Self-Care /Home Management,Sensory Integration,Soft Tissue Mobilization,Taping, Therapeutic Activities, Therapeutic Exercises Modalities Cold Pack/Ice Massage,Electric Stimulation,Hot Packs, Iontophoresis,Ultrasound Next Visit Focus/Plan Next Note Type Treatment Note Next Visit Plan POC: Continue progression of ther ex for right shoulder ROM and strengthening, scapular stabilization. Sidelyinig scapular mobilization and active shoulder flex. Trial supine wand ex, pull-downs with theraband facing away.
--- NOTE | 2023-02-26 11:53 | PT.OPDS ---
Current Diagnoses Strain of unspecified muscle, fascia and tendon at shoulder and upper arm level, right arm, initial encounter (05/19/22) Visit Care Team Role Provider Type Piter Munoz DO Family Provider Physician Primary Care Provider Specialty: Family Practice Address: [address] [place] [address], [facility] Email: [email or web address] Attending Provider Advanced Sales Representative [employer] Referring Provider Specialty: Internal Medicine Address: [address] [place] [address], [facility] [place], [facility] Email: [email or web address] Visit Number Visit Number 8 Discharge Summary PT-OP-B Current Condition Start: 03/23/22 16:54 Freq: Status: Active Protocol: Document 04/03/22 14:32 SAK (Rec: 04/03/22 15:14 SAK [id number]) Current Condition History of Current Condition Onset Date 11/28/21 (day before ) Current Complaints shoulder pain History of Current Condition tried to keep patient from falling to the floor, heard pop in her shoulder, has hurt ever since. x-ray negative. Will do further imaging if PT not helpful. Patient still working, no time off. Painful to reach overhead, behind her back, out to the side with ADL's and work. Has tried ice and heat, Tylenol and Ibuprofen. 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 PT-OP-H Neuro Start: 03/23/22 16:54 Freq: Status: Active Protocol: Document 03/27/22 13:48 SAK (Rec: 03/27/22 14:32 SAK [id number]) Sensation Evaluation Gross Sensation Gross Sensation WNL PT-OP-J Posture/Palpation/Skin Start: 03/23/22 16:54 Freq: Status: Active Protocol: Document 03/27/22 13:48 [facility] (Rec: 03/27/22 14:32 [facility] [id number]) Posture Evaluation Position Sitting T-Spine Posture Increased Kyphosis Scapula Posture (R) Protracted Arm Posture (R) Internally Rotated Palpation Assessment Location GH Palpation Location along joint line Palpation Findings Tenderness Palpation Details tenderness with light palpation Skin Assessment Edema Assessment right shoulder Comments none noted Other Assessments Skin Assessment Comments skin intact, no redness or warmth PT-OP-K Range of Motion Start: 03/23/22 16:54 Freq: Status: Active Protocol: Document 04/28/22 13:05 SP (Rec: 04/28/22 13:48 SP [id number]) Shoulder Goniometric Range of Motion Shoulder Right Active Shoulder ROM WFL No Testing Position Sitting Flexion 157 Extension 32 Abduction 142 External Rotation at 45 degrees 88 Abduction Internal Rotation Behind Back (text) back tufter L buttock Comments 04/28/22 supine: R UE AAROM wand 165deg FF. seated RUE AROM: FF +5 deg ABD + 20 deg Ext +15 deg ER+ 44 deg IR behind back to L buttocks R sidelying RUE AROM: 149 deg ABD PT-OP-M Strength Start: 03/23/22 16:54 Freq: Status: Active Protocol: Document 03/27/22 13:48 [facility] (Rec: 03/29/22 12:08 [facility] [id number]) Scapula Strength Scapula Manual Muscle Testing Right Elevation (C4) 3+ Fair+ Adduction 3+ Fair+ Abduction 3+ Fair+ Depression 3+ Fair+ Left Elevation (C4) 5 Normal Adduction 5 Normal Abduction 5 Normal Depression 5 Normal Shoulder Strength Shoulder Manual Muscle Testing Right Flexion 3- Fair- Extension 3- Fair- Abduction (C5) 3- Fair- External Rotation 3- Fair- Internal Rotation 3+ Fair+ Comments limited by pain, inability to move through full AROM Left Flexion 5 Normal Extension 5 Normal Abduction (C5) 5 Normal External Rotation 4+ Good+ Internal Rotation 4+ Good+ Elbow/Forearm Strength Elbow and Forearm Manual Muscle Testing Right Flexion (C6) 4- Good- Extension (C7) 4- Good- Comments limited by pain Left Flexion (C6) 5 Normal Extension (C7) 5 Normal PT-OP-T Assessment and Plan Start: 03/23/22 16:54 Freq: Status: Active Protocol: Document 02/26/23 11:53 [facility] (Rec: 02/26/23 11:53 [facility] [id number]) Physical Therapy Plan Discharge Physical Therapy Discharge Reasons No Longer Attending PT
== END 2023-02-27 10:36 | disposition home or self-care (01) ==
LOC: PHYS 09:00
PROVIDERS: Family Provider Family Medicine; PCP Family Medicine; Referring Provider Physician Assistant; Visit Provider Physician Assistant
DX: S46.911S Strain of unspecified muscle, fascia and tendon at shoulder and upper arm level, right arm, sequela
CPT/HCPCS: 97014; 97035; 97110; 97140; 97162; G0283

== ENCOUNTER 2022-10-20 15:04 | Emergency (ER) | payer OTHER, SELFPAY ==
--- NOTE | 2022-10-20 15:07 | DI.RAD.S_ITS ---
PROCEDURE: XR CHEST 1V INDICATIONS: chest pain TECHNIQUE: One view of the chest was acquired. COMPARISON: [facility], CR, XR CHEST 2V, 08/11/2019, 18:21. FINDINGS: Surgical changes and devices: None. Lungs and pleura: Lungs are clear. No pleural effusions or pneumothorax. Mediastinum: Mediastinal contours appear normal. Heart size is normal. Bones and chest wall: No suspicious bony lesions. Overlying soft tissues appear unremarkable. IMPRESSION: No acute cardiopulmonary abnormalities or focal airspace disease. Dictated by: Steve Vazquez M.D. on 10/20/2022 at 15:46 Approved by: Steve Vazquez M.D. on 10/20/2022 at 15:47
[2022-10-20 15:10] VITALS: BP 127/77; PULSE 70; RESP 15; TEMP 36.6; O2SAT 97; BMI 27.1
[2022-10-20 18:00] VITALS: BP 112/78; PULSE 78; RESP 15; O2SAT 99
[2022-10-20 18:06] LABS: Add Manual Diff / Slide Review NO; Basophils Absolute Auto 100 /uL (0-100); Basophils Percent Auto 0.4 % (0-2); Eosinophils Absolute Auto 300 /uL (0-450); Eosinophils Percent Auto 1.9 % (2-4); Hematocrit 40.3 % (36-46); Hemoglobin 13.8 g/dL (12.0-16.0); Lymphocytes Absolute Auto 3200 /uL (1100-4500); Lymphocytes Percent Auto 21.8 % (25-40); Mean Corpuscular HGB Conc 34.2 % (30-36); Mean Corpuscular Hemoglobin 30.4 PG (26-34); Monocytes Absolute Auto 900 /uL (0-900); Monocytes Percent Auto 5.9 % (3-14); Neutrophils Absolute Auto 10400 /uL (1500-7000); Platelet Count 261 X10^3/uL (150-400); Red Blood Cell Count 4.53 X10^6/uL (4.0-5.2); Red Cell Distribution Width 12.9 % (11.6-14.8); White Blood Cell Count 14.8 X10^3/uL (4.5-11.0)
[2022-10-20 18:08] LABS: Prothrombin Time 11.8 SECONDS (10.1-12.7)
[2022-10-20 18:11] LABS: PTT Partial Thromboplastin Tim 36 SECONDS (26-36)
[2022-10-20 18:13] LABS: Alanine Aminotransferase 32 IU/L (<35); Albumin 4.6 g/dL (3.5-5.0); Albumin Globulin Ratio 1.2 (1.0-2.8); Alkaline Phosphatase 60 U/L (38-126); Aspartate Aminotransferase 32 IU/L (14-36); BUN Creatinine Ratio 21.2 (6-22); Bilirubin Total 0.4 mg/dL (0.2-1.3); Blood Urea Nitrogen 11 mg/dL (7-17); Carbon Dioxide 27 mmol/L (22-32); Chloride 104 mmol/L (98-107); Creatine Kinase 136 U/L (30-135); Estimated Glomerular Filt Rate > 60 mL/min (>60); Globulin 3.8 g/dL (1.7-4.1); Glucose 85 mg/dL (70-100); HEMOLYSIS < 15 (0-50); Lipase 126 U/L (23-300); Potassium 3.6 mmol/L (3.4-5.1); Sodium 140 mmol/L (137-145); Total Protein 8.4 g/dL (6.3-8.2)
--- NOTE | 2022-10-20 18:14 | ED.GENADULT ---
HPI - General Adult General Chief complaint: Syncope Stated complaint: c/o chest pain / whole body pain Time Seen by Provider: 10/20/22 18:04 Source: patient Mode of arrival: EMS History of Present Illness HPI narrative: 27-year-old female nonsmoker presents with sharp and stabbing right-sided chest pain that she noticed yesterday while at work. She denies dizziness, weakness or lightheadedness. She states she has shortness of breath but only because she developed a sharp and stabbing pain with a deep breath. She is had no cough or hemoptysis. She denies any fever or chills. She denies nausea, vomiting or diarrhea. She denies runny nose, sore throat. She denies any exercise intolerance or exertional symptoms. She denies any recent travel, injury, history of blood clot or lower extremity pain, swelling or redness. She does not take control. Related Data Home Medications Medication Instructions Recorded Confirmed ferrous sulfate 325 mg (65 mg 325 mg PO DAILY 10/14/20 02/15/22 iron) tablet (Feosol) prenat.vits,dalton,[id number] 1 tab PO DAILY 10/14/20 02/15/22 Previous Rx's Medication Instructions Recorded meclizine 25 mg tablet 25 mg PO BID PRN dizziness #30 tabs 10/14/20 oxycodone 5 mg capsule 5 mg PO Q4H PRN pain #14 caps 03/10/21 ketorolac 10 mg tablet 10 mg PO Q6H PRN pain #14 tabs 10/20/22 Allergies Allergy/AdvReac Type Severity Reaction Status Date / Time soap AdvReac Mild Rash Verified 10/20/22 15:15 Review of Systems Review of Systems Narrative: GENERAL: See HPI HEENT: Denies sinus pain, ear pain, sore throat, difficulty swallowing, dizziness. RESPIRATORY: Denies dyspnea, cough, wheezing, hemoptysis, sputum. CARDIOVASCULAR: See HPI GASTROINTESTINAL: Denies nausea, vomiting, abdominal pain, diarrhea, constipation, melena. : Denies dysuria, frequency, incontinence, hematuria, urinary retention. MUSCULOSKELETAL: denies weakness, joint pain, or bony pain SKIN: Denies rash, skin lesions, or other NEUROLOGIC: Denies weakness, headache, numbness, change in speech, confusion, seizures, incoordination. PSYCHIATRIC: No concerning psychosocial issues. 12 point review of systems is negative except for those stated above Patient History Medical History Anxiety Dysmenorrhea Infertility counseling Light-headed feeling Palpitations Vertigo Surgical History History of lithotripsy Family History Mother Early menopause Father History of heart disease Mother History of heart disease Stroke Social History household members: spouse Smoking Status: Never smoker alcohol intake: never Smoking Status: Never smoker alcohol intake frequency: holidays/special occasions only Substance Use Type: does not use Exam Narrative Exam Narrative: GENERAL: [27] year old patient appears stated age. Well-developed patient, in mild distress. HEAD: Atraumatic. Normocephalic. EYES: Pupils equal round and reactive. Extraocular motions intact. No scleral icterus. No injection or drainage. ENT: Nose without bleeding, purulent drainage. Throat without erythema, tonsillar hypertrophy or exudate. Airway patent. NECK: Trachea midline. Non tender CARDIOVASCULAR: Regular rate and rhythm without murmurs, gallops, or rubs. RESPIRATORY: Clear to auscultation. Breath sounds equal bilaterally. No wheezes, rales, or rhonchi. GASTROINTESTINAL: Abdomen soft, non-tender, nondistended. EXTREMITIES: No edema or joint tenderness. BACK: Nontender without deformity or crepitance. No flank tenderness. NEURO: AOx3. SKIN: No rash or erythema of visible areas Initial Vital Signs Initial Vital Signs: Vital Signs Temperature 97.9 F 10/20/22 15:10 Pulse Rate 70 10/20/22 15:10 Respiratory Rate 15 10/20/22 15:10 Blood Pressure 127/77 10/20/22 15:10 Pulse Oximetry 97 10/20/22 15:10 Oxygen Delivery Method Room Air 10/20/22 15:10 Scores HEART Score Heart Score history: Slightly Suspicious Heart Score EKG: Normal Heart Score Age: < 45 years old Heart Score risk factors: No known risk factors Heart Score troponin: < or = to normal limit Heart Score Total: 0 PERC Score Age greater than or equal to 50 years: No Heart rate greater than or equal to 100 bpm: No Room Air O2 Sat less than 95%: No Unilateral leg swelling: No Recent trauma or surgery: No Hemoptysis: No Prior PE or DVT: No Hormone Use: No Total PERC Score: 0 Wells' Criteria for PE Clinical signs and symptoms of DVT: No PE is #1 Dx or equally likely: No Heart rate > 100: No Immobilization at least 3 days or surg in previous 4 weeks: No History of PE or DVT: No Hemoptysis: No Malignancy w/Treatment within 6 months or palliative: No Wells' PE Score total: 0 Course Orders Ordered: Discontinued Medications Ketorolac Tromethamine (Ketorolac 30 Mg/Ml Vial) 15 mg IV NOW ONE Stop: 10/20/22 18:27 Last Admin: 10/20/22 18:40 Dose: 15 mg Documented By: BRITTANI Vital Signs Vital signs: Vital Signs - 8 hr 10/20/22 15:10 Temperature 97.9 F Pulse Rate 70 Respiratory Rate 15 Blood Pressure 127/77 Pulse Oximetry 97 Oxygen Delivery Method Room Air Medical Decision Making Lab Data 10/20/22 17:44 10/20/22 17:44 Labs: Lab Results 10/20/22 10/20/22 10/20/22 Range/Units 17:44 17:44 17:44 WBC 14.8 H (4.5-11.0) X10^3/uL RBC 4.53 (4.0-5.2) X10^6/uL Hgb 13.8 (12.0-16.0) g/dL Hct 40.3 (36-46) % MCV 89.0 (80-100) fL MCH 30.4 (26-34) PG MCHC 34.2 (30-36) % RDW 12.9 (11.6-14.8) % Plt Count 261 (150-400) X10^3/uL Neut % (Auto) 70.0 (50-75) % Lymph % (Auto) 21.8 L (25-40) % Crenshaw % (Auto) 5.9 (3-14) % Eos % (Auto) 1.9 L (2-4) % Baso % (Auto) 0.4 (0-2) % Neut # (Auto) 42786 H (1004-6619) /uL Lymph # (Auto) 3200 (9092-4589) /uL Crenshaw # (Auto) 900 (0-900) /uL Eos # (Auto) 300 (0-450) /uL Baso # (Auto) 100 (0-100) /uL ESR PT 11.8 (10.1-12.7) SECONDS INR 1.0 (0.9-1.3) APTT 36 (26-36) SECONDS Sodium 140 (137-145) mmol/L Potassium 3.6 (3.4-5.1) mmol/L Chloride 104 (98-107) mmol/L Carbon Dioxide 27 (22-32) mmol/L BUN 11 (7-17) mg/dL Creatinine 0.52 (0.52-1.04) mg/dL Estimated GFR > 60 (>60) mL/min BUN/Creatinine Ratio 21.2 (6-22) Glucose 85 (70-100) mg/dL Calcium 9.0 (8.4-10.2) mg/dL Magnesium 2.0 (1.6-2.3) mg/dL Total Bilirubin 0.4 (0.2-1.3) mg/dL AST 32 (14-36) IU/L ALT 32 (<35) IU/L Alkaline Phosphatase 60 (38-126) U/L Total Creatine Kinase 136 H (30-135) U/L CK-MB (CK-2) 0.24 (<2.37) ng/mL CK-MB (CK-2) Rel Index 0.2 L (1.5-5.0) % Troponin I < 0.012 (0.01-0.034) ng/mL C-Reactive Protein (<1.0) mg/dL Total Protein 8.4 H (6.3-8.2) g/dL Albumin 4.6 (3.5-5.0) g/dL Globulin 3.8 (1.7-4.1) g/dL Albumin/Globulin Ratio 1.2 (1.0-2.8) Lipase 126 (23-300) U/L 10/20/22 10/20/22 Range/Units 17:44 17:44 WBC (4.5-11.0) X10^3/uL RBC (4.0-5.2) X10^6/uL Hgb (12.0-16.0) g/dL Hct (36-46) % MCV (80-100) fL MCH (26-34) PG MCHC (30-36) % RDW (11.6-14.8) % Plt Count (150-400) X10^3/uL Neut % (Auto) (50-75) % Lymph % (Auto) (25-40) % Crenshaw % (Auto) (3-14) % Eos % (Auto) (2-4) % Baso % (Auto) (0-2) % Neut # (Auto) (0675-5637) /uL Lymph # (Auto) (7172-0535) /uL Crenshaw # (Auto) (0-900) /uL Eos # (Auto) (0-450) /uL Baso # (Auto) (0-100) /uL ESR Cancelled PT (10.1-12.7) SECONDS INR (0.9-1.3) APTT (26-36) SECONDS Sodium (137-145) mmol/L Potassium (3.4-5.1) mmol/L Chloride (98-107) mmol/L Carbon Dioxide (22-32) mmol/L BUN (7-17) mg/dL Creatinine (0.52-1.04) mg/dL Estimated GFR (>60) mL/min BUN/Creatinine Ratio (6-22) Glucose (70-100) mg/dL Calcium (8.4-10.2) mg/dL Magnesium (1.6-2.3) mg/dL Total Bilirubin (0.2-1.3) mg/dL AST (14-36) IU/L ALT (<35) IU/L Alkaline Phosphatase (38-126) U/L Total Creatine Kinase (30-135) U/L CK-MB (CK-2) (<2.37) ng/mL CK-MB (CK-2) Rel Index (1.5-5.0) % Troponin I (0.01-0.034) ng/mL C-Reactive Protein < 0.5 (<1.0) mg/dL Total Protein (6.3-8.2) g/dL Albumin (3.5-5.0) g/dL Globulin (1.7-4.1) g/dL Albumin/Globulin Ratio (1.0-2.8) Lipase (23-300) U/L MDM Narrative Medical decision making narrative: CC: 27-year-old female with sharp and stabbing right-sided chest pain Complicating co-morbidities: None known Data collected from: Patient Medical records reviewed: Prior notes reviewed in our EMR Differential considered, but not limited to: Cardiac ischemia, pulmonary embolism, pericarditis, versus other Exam documented above, pertinent findings include: No significant abnormal findings Lab Test results independently reviewed as above. Pertinent findings: No significant abnormal findings suggestive of the need for intervention. Moderate leukocytosis no obvious left shift, no signs of anemia. Electrolytes within normal, no abnormal renal function, troponin negative Independently reviewed EKG as above Imaging studies independently reviewed: No acute findings Scores Used: Heart, wells, PERC Treatments: Toradol Re-evaluations: Significant improvement with above-stated therapies Discussion: Multiple causes of chest pain considered including UT, PE, pneumothorax, pneumonia, aortic dissection, and pleurisy. Patient reports no radiation, no diaphoresis, no provocation with exertion, and no vomiting. EKG without occlusive or dynamic findings, troponin negative, heart score low. PE considered but thought extremely unlikely given low Wells and PERC scores. Pericarditis considered but thought unlikely given lack of characteristic lab or EKG findings. Patient pain well controlled, hemodynamically stable, improved with above-stated therapies, no sign of diagnosis that requires specific or immediate intervention. She is appropriate for discharge Disposition: see below, along with detailed discharge instructions that have been reviewed with patient as well as indications for ED re-evaluation and additional outpatient follow up Discharge Plan Departure Patient Disposition: Home Clinical Impression: Atypical chest pain Instructions: DI for Atypical Chest Pain Activity Restrictions/Additional Instructions: *You have been diagnosed with [atypical chest pain. As we discussed your history and physical exam are very reassuring and there is no evidence of heart attack, blood clot, pneumonia or other significant abnormal finding that requires a specific or immediate intervention *What to do: *Please continue to take your regular medications as directed. [ x] New medication prescriptions sent to your pharmacy: [ [facility]] [ ] New medication written as a paper prescription [ ] No new medications given *Please follow up with your primary care provider in 2-3 days, call for an appointment. Let them know you were seen in the Emergency Department and that we ask that you be seen in follow up. We will electronically transmit a record of today's note if your PCP is in our system *If you do not have a primary care provider please contact the [facility] Resource line at [phone]. They will ask some questions about your medical history and help get you set up with a doctor in the community. *Return to Emergency Department if you should have any new, worsening or concerning symptoms, such as [fever greater than 101 F, shaking chills, worsening pain, persistent vomiting or other bothersome symptoms] Prescriptions: New ketorolac 10 mg tablet 10 mg PO Q6H PRN (Reason: pain) Qty: 14 0RF No Action ferrous sulfate [Feosol] 325 mg (65 mg iron) tablet 325 mg PO DAILY prenat.vits,dalton,[id number] Tablet 1 tab PO DAILY meclizine 25 mg tablet 25 mg PO BID PRN (Reason: dizziness) Qty: 30 0RF Rx Instructions: May make drowsy, do not drive during therapy oxycodone 5 mg capsule 5 mg PO Q4H PRN (Reason: pain) Qty: 14 0RF Referrals: Piter Munoz DO [Primary Care Provider] - Stand Alone Forms: Patient Portal/API
[2022-10-20 18:24] LABS: Troponin I < 0.012 ng/mL (0.01-0.034)
[2022-10-20 18:28] LABS: CKMB % Relative Index 0.2 % (1.5-5.0); Creatine Kinase MB 0.24 ng/mL (<2.37)
[2022-10-20 18:36] LABS: C-Reactive Protein Quant < 0.5 mg/dL (<1.0)
[2022-10-20] MEDS: KETOROLAC 30 MG/ML VIAL 15 MG IV (18:40)
[2022-10-20 18:53] VITALS: BP 114/83; PULSE 83; O2SAT 99
== END 2022-10-20 18:53 | disposition home or self-care (01) ==
PROVIDERS: Emergency Medicine; Emergency Provider Emergency Medicine; Family Provider Family Medicine; PCP Family Medicine
DX: R07.89 Other chest pain (principal)
CPT/HCPCS: 36415; 71045; 80053; 82550; 82553; 83690; 83735; 84484; 85025; 85610; 85730; 86140; 93005; 96374; 99284; J1885

== ENCOUNTER → 2022-10-31 10:17 | Outpatient (CLI) | payer OTHER, SELFPAY ==
[2022-10-31 10:39] LABS: Add Manual Diff / Slide Review NO; Basophils Absolute Auto 100 /uL (0-100); Basophils Percent Auto 0.8 % (0-2); Eosinophils Absolute Auto 400 /uL (0-450); Eosinophils Percent Auto 4.2 % (2-4); Hematocrit 39.8 % (36-46); Hemoglobin 13.7 g/dL (12.0-16.0); Lymphocytes Absolute Auto 2900 /uL (1100-4500); Lymphocytes Percent Auto 31.8 % (25-40); Mean Corpuscular HGB Conc 34.4 % (30-36); Mean Corpuscular Hemoglobin 30.4 PG (26-34); Mean Corpuscular Volume 88.3 fL (80-100); Monocytes Absolute Auto 600 /uL (0-900); Monocytes Percent Auto 7.1 % (3-14); Neutrophils Absolute Auto 5100 /uL (1500-7000); Neutrophils Percent Auto 56.1 % (50-75); Platelet Count 261 X10^3/uL (150-400); Red Cell Distribution Width 12.5 % (11.6-14.8)
[2022-10-31 10:53] LABS: Alanine Aminotransferase 29 IU/L (<35); Albumin 4.4 g/dL (3.5-5.0); Albumin Globulin Ratio 1.2 (1.0-2.8); Alkaline Phosphatase 55 U/L (38-126); Aspartate Aminotransferase 28 IU/L (14-36); BUN Creatinine Ratio 24.4 (6-22); Bilirubin Total 0.7 mg/dL (0.2-1.3); Blood Urea Nitrogen 11 mg/dL (7-17); Calcium 8.9 mg/dL (8.4-10.2); Carbon Dioxide 27 mmol/L (22-32); Chloride 103 mmol/L (98-107); Estimated Glomerular Filt Rate > 60 mL/min (>60); Globulin 3.6 g/dL (1.7-4.1); Glucose 93 mg/dL (70-100); HEMOLYSIS < 15 (0-50); Potassium 3.7 mmol/L (3.4-5.1); Sodium 139 mmol/L (137-145)
== END ==
PROVIDERS: Family Provider Family Medicine; PCP Family Medicine; Referring Provider Family Medicine; Visit Provider Family Medicine
DX: D72.821 Monocytosis (symptomatic) (principal); R07.89 Other chest pain; R42 Dizziness and giddiness
CPT/HCPCS: 36415; 80053; 85025

== ENCOUNTER → 2023-07-31 14:32 | Outpatient (CLI) | payer OTHER, SELFPAY | PROVIDERS: Family Provider Family Medicine; PCP Family Medicine; Referring Provider Obstetrics & Gynecology; Visit Provider Obstetrics & Gynecology | DX: R14.0 Abdominal distension (gaseous) (principal); R10.9 Unspecified abdominal pain; Z87.42 Personal history of other diseases of the female genital tract; N83.201 Unspecified ovarian cyst, right side | CPT/HCPCS: 36415; 86304 ==

== ENCOUNTER 2023-10-04 14:03 | Day surgery (SDC) | payer OTHER, SELFPAY ==
[2023-10-01 18:17] VITALS: BMI 29.0
[2023-10-04] VITALS (8 sets, daily range): BP systolic 95–113; BP diastolic 58–75; PULSE 79–88; RESP 16–29; TEMP 36.6; O2SAT 99–100; BMI 29.0
--- NOTE | 2023-10-04 | PATH_ITS ---
[facility] Accession Number: [id number] No. of containers..01 Tissue . 01 Material submitted: . ovary - RIGHT OVARIAN CYST . 01 Diagnosis: RIGHT OVARY, CYSTECTOMY: Serous cystadenoma. Negative for significant atypia and malignancy. See comment. MRV 10/08/2023 1759 Local . 01 Comment: An isolated minute area of focal epithelial proliferation (less than 10% of the tumor) is seen consisting of stratification of the epithelium with tufting. There is no significant cytologic atypia. An invasive malignancy is not present. . 01 Electronically signed: . Alexandria Stoner MD, Pathologist NPI- [id number] . 01 Gross description: . The specimen is received in formalin labeled with the patient's name, , and right ovarian cyst, and consists of a luther, intact cystic structure measuring 4.2 x 3.0 x 1.7 cm. The external surface is wrinkled with a yellow-orange area of coloration measuring 1.1 x 0.7 cm. The external surface is inked blue while the area of orange coloration is inked red. Sectioning reveals a unilocular cystic structure filled with clear serous fluid. The internal surface is smooth with no excrescence identified, and the varma average less than 0.1 cm thick with no excrescence identified. The specimen is submitted entirely in cassettes A1-A8. ([id number]) /KYM 10/05/2023 1151 Local . 01 Pathologist provided ICD-10: N83.201 . 01 CPT . 078445 Specimen Comment: A courtesy copy of this report has been sent to [phone] Performed at: [address] [place] [address] Cytology [address], [place], [place] [id number] MD Javier Sanches MD Phone: [phone]
[2023-10-04] MEDS: LACTATED RINGERS 1,000 ML 21 ML IV ×2 (14:53→17:17)
[2023-10-04] MEDS: ACETAMINOPHEN 325 MG TABLET 975 MG PO (14:56)
[2023-10-04] MEDS: SCOPOLAMINE 1 PATCH TOP (14:57)
--- NOTE | 2023-10-04 15:28 | P.HPOB_ITS ---
History of Present Illness History of Present Illness Reason for admission: other (Right ovarian cyst) Narrative: Javier Haynes is a 28 year old female G0 who presents for laparoscopic removal of a right ovarian cyst This has been persistent and symptomatic. [facility] Medical History (Updated 09/20/23 @ 00:48 by Felisha Gordon MD) Leukocytosis Vertigo Dysmenorrhea Infertility counseling Anxiety Palpitations Surgical History (System 07/16/23 @ 15:42 by Carrol Barnes) History of lithotripsy Family History (System 07/16/23 @ 15:42 by Carrol Barnes) Mother Early menopause Father History of heart disease Mother History of heart disease Stroke Social History (System 07/16/23 @ 15:42 by Carrol Barnes) household members: spouse Smoking Status: Never smoker second hand exposure: Yes (childhood ) alcohol intake: never substance use type: does not use Meds Home Medications and Allergies Home Medications Medication Instructions Recorded Confirmed Type ferrous sulfate 325 mg (65 mg 325 mg PO DAILY 10/14/20 10/04/23 History iron) tablet (Feosol) prenat.vits,dalton,zbp-iqkp-vrydr 1 tab PO DAILY 10/14/20 10/04/23 History clomiphene citrate 50 mg tablet 50 mg PO DAILY Infertility 08/22/23 09/10/23 History vitamin E (dl, acetate) PO 08/22/23 09/10/23 History Allergies Allergy/AdvReac Type Severity Reaction Status Date / Time soap Allergy Mild Rash Verified 10/04/23 14:34 Exam Vital Signs (past 8 hours): - 10/04/23 14:36 Temperature 97.9 F Pulse Rate 88 Respiratory Rate 16 Blood Pressure 113/75 Pulse Oximetry 100 Oxygen Delivery Method Room Air Oxygen Delivery Method Room Air Narrative Exam Narrative: HEENT: No thyromegaly, no anterior cervical or supraclavicular lymphadenopathy. Lungs:Clear to auscultation bilaterally, no wheezes. Cardiovascular: Regular rate and rhythm, no murmurs, rubs, or gallops. Abdomen: Well-healed laparoscopy scars. No hepatosplenomegaly. No masses palpable. External genitalia: Normal Vagina: Normal Cervix: Normal Bimanual exam: 6 Week size uterus. Mobile. Left adnexal tenderness. Extremities: No edema Assessment & Plan Assessment & Plan narrative: Assessment: 28-year-old 0 with a persistent, symptomatic, right ovarian cyst Plan: Laparoscopic right ovarian cystectomy The risks, benefits, and alternatives to the procedure were explained to the patient. The risks including bleeding, infection, injury to the bowel, bladder, or ureters. She understands these risks and agrees to proceed. A full par Q was held and consent form was signed.
--- NOTE | 2023-10-04 15:32 | PM.PREOP ---
Pre-operative Note Interval Note History & Physical reviewed/Exam performed by Physician: Yes Changes to H&P: No H&P completed within 30 days and has changed as indicated here:: 10/04/23
--- NOTE | 2023-10-04 16:18 | SUR.OPER ---
Lithotomy on padded OR bed, head on pillow, arms padded with gel pads and tucked at sides. Legs secured in padded yellow fins stirrups.
[2023-10-04] MEDS: BUPIVACAINE 0.5% (PF) 30 ML, EPINEPHrine 0.15 MG INJ (16:29)
[2023-10-04] MEDS: TRIAMCINOLONE 40 MG/ML VIAL 5 MG IM (16:35)
--- NOTE | 2023-10-04 16:45 | PATH_ITS ---
Note [facility] Accession Number: [id number] TESTS RESULT FLAG UNITS REF RANGE LAB Clinician Provided Cytology Information No. of containers..01 Other (Miscellaneous) Source: RIGHT OVARIAN CYST FLUID DIAGNOSIS: RIGHT OVARIAN CYST FLUID NEGATIVE FOR MALIGNANT CELLS. Pathologist ICD10: N83.209 Signed out by: Alexandria Stoner MD, Pathologist NPI- [id number] Performed by: José Hsieh, Hand Dry Cleaner ([facility]) Gross description: 10 CC, PINK, HAZY RECEIVED: FRESH IN BLUE CAP CONTAINER.VO /VDU 10/05/2023 0711 Local FLAG LEGEND: L-Low Normal,H-High Normal,LL-Alert Low,HH-Alert High <-Panic Low,>-Panic High,A-Abnormal,AA-Critical Abnormal Performed at: 01 =[facility] [address], [place] [address] Javier Sanches MD, Performed at: 01 [facility] [address], [place], [place] [id number] MD Javier Sanches MD Phone: [phone]
--- NOTE | 2023-10-04 17:05 | PM.GYNOP.1 ---
Operative Date/Time/Diagnoses Date of procedure: 10/04/23 Time of procedure: 17:05 Pre-op diagnosis: Recurrent right ovarian cyst Symptomatic Post-op diagnosis: same Procedure & Clinicians Procedure: Procedures Operation Date: 10/04/23 15:30 Actual Procedure Side Surgeon p Laparoscopic Removal of Ovarian Cyst Right Felisha Gordon MD Indications: Patient is a 28-year-old 0 with a recurrent right ovarian cyst that is symptomatic Surgeon: Felisha Gordon Anesthesia Type: General and Local Operative Notes Findings: 6 week size anteverted uterus 7 cm simple right ovarian cyst Normal tubes Normal left ovary Normal liver and gallbladder Normal appendix Closure Type: primary Specimen(s): washings and other (right ovarian cyst, fluid to cytology) Estimated blood loss (mL): 10 Blood products transfused: none Procedure in detail: After informed consent was obtained, the patient was taken to the operating room where she was placed in the dorsal supine position. After adequate general endotracheal anesthesia was achieved, she was placed in the dorsal lithotomy position, and prepped and draped in the usual sterile fashion. A time-out was performed. A bivalve speculum was placed into the vagina and the anterior lip of the cervix was grasped with a single-tooth tenaculum. The cervical os was sequentially dilated until the Zumi uterine manipulator could pass easily into the endometrial cavity. The single-tooth tenaculum was removed from the anterior lip of the cervix. The bivalve speculum was removed from the vagina. Attention was turned to the abdomen where 6 cc of 0.25% Marcaine with epinephrine were injected in the umbilical fold. A 5 mm incision was made. The Veress needle was placed into the peritoneal cavity, and its placement confirmed by aspiration and drop test. The abdominal cavity was insufflated with 3.0 L of CO2. The Veress needle was removed, and a 5 mm trocar was placed without difficulty. Two other incisions were made 4 cm lateral to the midline after 6 cc of 0.25% Marcaine with epinephrine were injected. Two 5 mm trocars were placed under direct visualization. The right ovary was grasped with an atraumatic grasper. Using the endo Priti the surface of the ovary was incised with cautery and cut with care not to get into the cyst. Using the endo Priti then the cyst was dissected off of the ovary using sharp and blunt dissection. At the base of the cyst the power seal was used with cautery and cut to detach it from the ovary. This was placed into the right lower quadrant. 6 cc of 0.25% Marcaine with epinephrine were injected above the pubic symphysis in the midline. A 12 mm incision was made. The 12 mm trocar was placed under direct visualization. The small endobag was placed through the trocar and the ovarian cyst was placed into the bag. The trocar was removed. The edges of the bag were brought up through the incision. Using the Veress needle the cyst was ruptured and 10 cc of fluid were sent to cytology. The bag with the cyst wall were removed without difficulty. The fascia on the suprapubic incision was closed with 0 Vicryl in a running fashion. Abdomen was re-insufflated. The right ovary was found to be hemostatic. The pelvis was copiously irrigated. The instruments were removed from the abdomen. The CO2 was allowed to escape. All of the incisions were closed with 4-0 Monocryl in a subcuticular fashion. Steri-Strips and Allevyn dressings were placed. The Zumi uterine manipulator was removed from the uterus. Sponge, lap, and instrument counts were correct x2. The patient tolerated the procedure well, and was taken to PACU in stable condition. Complications: none Post-operative Condition: stable Disposition: PACU Plan for aftercare: Home after recovery
[2023-10-04] MEDS: ONDANSETRON 4 MG/2 ML INJ IV (17:31)
[2023-10-04] MEDS: OXYCODONE IR 5 MG TABLET PO (17:31)
== END 2023-10-04 18:15 | disposition home or self-care (01) ==
PROVIDERS: Family Provider Family Medicine; PCP Family Medicine; Referring Provider Obstetrics & Gynecology; Visit Provider Obstetrics & Gynecology
PROC: (CPT 58662; principal; 2023-10-04 15:30)
DX: D27.0 Benign neoplasm of right ovary (principal)
CPT/HCPCS: 58662; J0171; J1100; J1885; J2250; J2405; J2704; J3010

== ENCOUNTER → 2023-10-24 14:43 | Outpatient (CLI) | payer OTHER, SELFPAY ==
[2023-10-24 15:19] LABS: Appearance Urine UA CLEAR; Bilirubin Urine UA NEGATIVE (NEGATIVE); Color Urine UA YELLOW; Glucose Urine UA NEGATIVE (Negative); Ketones Urine UA NEGATIVE (NEGATIVE); Leukocyte Esterase Urine UA TRACE (NEGATIVE); Nitrite Urine UA NEGATIVE (Negative); Occult Blood Urine UA NEGATIVE (Negative); Protein Urine UA NEGATIVE (Negative); Specific Gravity Urine UA <=1.005 (1.000-1.035); Urobilinogen Urine UA 0.2 E.U./dL (0.2)
[2023-10-24 15:24] LABS: Urine Volume 10mL (spun)
[2023-10-24 15:25] LABS: Bacteria Urine None Seen; Culture Indicated Urine Specimen Cultured; RBC Urine None Seen (0-5/HPF); Squamous Epithelial Cell Urine 0-1 /HPF (0-5/HPF); WBC Urine 0-1/HPF (0-5/HPF)
== END ==
PROVIDERS: Family Provider Family Medicine; PCP Family Medicine; Referring Provider Obstetrics & Gynecology; Visit Provider Obstetrics & Gynecology
DX: R30.0 Dysuria (principal)
CPT/HCPCS: 81001; 87086

== ENCOUNTER → 2024-06-03 09:24 | Outpatient (CLI) | payer OTHER, SELFPAY ==
[2024-06-03 11:03] LABS: HCG Quantitative /Beta subunit < 2.39 mIU/mL
== END ==
LOC: LAB 09:25
PROVIDERS: PCP Family Medicine; Referring Provider Physician Assistant; Visit Provider Physician Assistant
DX: N92.6 Irregular menstruation, unspecified (principal)
CPT/HCPCS: 36415; 84702

== ENCOUNTER → 2024-06-11 09:05 | Outpatient (CLI) | payer OTHER, SELFPAY ==
[2024-06-11 09:52] LABS: Add Manual Diff / Slide Review NO; Basophils Absolute Auto 0 /uL (0-100); Basophils Percent Auto 0.6 % (0-2); Eosinophils Absolute Auto 200 /uL (0-450); Eosinophils Percent Auto 2.8 % (2-4); Hematocrit 40.3 % (36-46); Hemoglobin 13.7 g/dL (12.0-16.0); Lymphocytes Absolute Auto 2600 /uL (1100-4500); Lymphocytes Percent Auto 36.8 % (25-40); Mean Corpuscular Hemoglobin 30.3 PG (26-34); Mean Corpuscular Volume 89.1 fL (80-100); Monocytes Absolute Auto 400 /uL (0-900); Monocytes Percent Auto 5.9 % (3-14); Neutrophils Absolute Auto 3800 /uL (1500-7000); Neutrophils Percent Auto 53.9 % (50-75); Platelet Count 268 X10^3/uL (150-400); Red Blood Cell Count 4.53 X10^6/uL (4.0-5.2); Red Cell Distribution Width 12.5 % (11.6-14.8); White Blood Cell Count 7.1 X10^3/uL (4.5-11.0)
[2024-06-11 10:09] LABS: HEMOLYSIS < 15 (0-50)
[2024-06-11 10:14] LABS: Alanine Aminotransferase 20 IU/L (<35); Albumin 4.4 g/dL (3.5-5.0); Albumin Globulin Ratio 1.5 (1.0-2.8); Alkaline Phosphatase 54 U/L (38-126); Aspartate Aminotransferase 26 IU/L (14-36); BUN Creatinine Ratio 20.8 (6-22); Bilirubin Total 0.6 mg/dL (0.2-1.3); Blood Urea Nitrogen 11 mg/dL (7-17); Calcium 9.6 mg/dL (8.4-10.2); Carbon Dioxide 27 mmol/L (22-32); Chloride 103 mmol/L (98-107); Cholesterol 199 mg/dL (140-199); Estimated Glomerular Filt Rate > 60 mL/min (>60); Globulin 2.9 g/dL (1.7-4.1); Glucose 94 mg/dL (70-100); HDL Cholesterol 47 mg/dL (40-60); LDL Cholesterol Calculated 119 mg/dL (<100); Potassium 4.4 mmol/L (3.4-5.1); Sodium 138 mmol/L (137-145); Total Protein 7.3 g/dL (6.3-8.2); Triglycerides 163 mg/dL (35-150)
[2024-06-11 10:43] LABS: TSH w/ Reflex to FT4 2.65 uIU/mL (0.47-4.68)
[2024-06-11 10:51] LABS: Ferritin 148 ng/mL (6-137)
[2024-06-12 13:36] LABS: Insulin Level Total 9.6 uIU/mL (2.6-24.9)
[2024-06-12 20:07] LABS: High Sensitivity CRP - Cardiac 2.4 mg/L (1.0-3.0)
== END ==
PROVIDERS: PCP Family Medicine; Referring Provider Family Medicine; Visit Provider Family Medicine
DX: Z00.01 Encounter for general adult medical examination with abnormal findings (principal); E66.3 Overweight; H93.13 Tinnitus, bilateral; R00.2 Palpitations; F41.9 Anxiety disorder, unspecified
CPT/HCPCS: 36415; 80053; 80061; 82728; 83036; 83525; 84443; 85025; 86140

== ENCOUNTER → 2024-11-26 12:59 | Outpatient (CLI) | payer OTHER, SELFPAY ==
--- NOTE | 2024-11-26 13:02 | DI.RAD.S_ITS ---
PROCEDURE: HL HYSTEROSAPINGOGRAPHY INDICATIONS: Infertility COMPARISON: None. FINDINGS: Patient had a documented negative test prior to the study. Following speculum insertion, a balloon-tip catheter was inserted into the cervical canal, and secured by inflating the balloon. Contrast was then injected into the endometrial canal. Uterus: The uterine cavity appears normal in size and morphology, without synechiae or masses. Fallopian tubes: Both fallopian tubes fill with contrast, and appear normal in caliber and morphology. There is ready dispersion of contrast into the peritoneal cavity. IMPRESSION: Normal hysterosalpingogram. Dictated by: Scott Zheng M.D. on 11/26/2024 at 14:31 Approved by: Scott Zheng M.D. on 11/26/2024 at 14:37
--- NOTE | 2024-11-26 13:45 | PM.PROC.IH ---
Procedures Date/Time Date of procedure: 11/26/24 Time of procedure: 13:45 General Procedure description: Hysterosalpingogram Patient comes in for hysterosalpingogram for infertility. The procedure was discussed with the patient consent form signed with questions answered. Risk of the procedure reaction to dye, pain, infection are minimal. A speculum was placed in the vagina. A single-tooth tenaculum was placed on the anterior lip of the cervix. The utrerine catheter was placed through the cervix into the uterus with the balloon inflated 1 cc of air. While the radiologist performed fluorosopy the contrast dye was injected into the uterus until spill was seen from both fallopian tubes. The patient tolerated the procedure. Complications: none [facility] [employer]ar[employer] Supervisor Document charge(s): Yes
== END ==
PROVIDERS: PCP Family Medicine; Referring Provider Specialist; Visit Provider Specialist
DX: Z31.9 Encounter for procreative management, unspecified (principal)
CPT/HCPCS: 58340; 74740

== ENCOUNTER 2024-12-25 15:05 | Emergency (ER) | payer OTHER, SELFPAY ==
[2024-12-25 15:09] VITALS: BP 129/76; PULSE 94; RESP 12; TEMP 36.3; O2SAT 100; BMI 29.2
--- NOTE | 2024-12-25 15:32 | EKG_ITS ---
[facility] [address] [address] Test Date: 2024-12-25 Pat Name: Javier Haynes Department: [facility] Room: Gender: Female [employer] Architect: : 1995 Requested By: Order Number: [id number] Reading MD: Vish Case MD Measurements Intervals Hitchcock Rate: 86 P: 48 ND: 136 QRS: 8 QRSD: 70 T: 23 QT: 368 QTc: 440 Interpretive Statements Normal sinus rhythm Low voltage QRS Electronically Signed On 12-25-2024 17:27:09 PDT by Vish Case MD
[2024-12-25 15:37] LABS: Add Manual Diff / Slide Review NO; Basophils Absolute Auto 100 /uL (0-100); Basophils Percent Auto 0.6 % (0-2); Eosinophils Absolute Auto 300 /uL (0-450); Eosinophils Percent Auto 2.7 % (2-4); Hematocrit 39.9 % (36-46); Hemoglobin 13.7 g/dL (12.0-16.0); Lymphocytes Absolute Auto 3000 /uL (1100-4500); Lymphocytes Percent Auto 32.5 % (25-40); Mean Corpuscular HGB Conc 34.3 % (30-36); Mean Corpuscular Hemoglobin 30.3 PG (26-34); Mean Corpuscular Volume 88.3 fL (80-100); Monocytes Absolute Auto 800 /uL (0-900); Monocytes Percent Auto 9.2 % (3-14); Neutrophils Absolute Auto 5100 /uL (1500-7000); Platelet Count 267 X10^3/uL (150-400); Red Blood Cell Count 4.52 X10^6/uL (4.0-5.2); Red Cell Distribution Width 12.9 % (11.6-14.8); White Blood Cell Count 9.2 X10^3/uL (4.5-11.0)
--- NOTE | 2024-12-25 15:40 | ED.NAVMDI ---
HPI - Nausea/Vomiting/Diarrhea <Jeri Layton PA-C - Last Filed: 12/25/24 19:10> General Chief complaint: Nausea/Vomiting/Diarrhea Stated complaint: dizzy all day nauesa Time Seen by Provider: 12/25/24 15:40 Mode of arrival: Ambulatory History of Present Illness HPI Narrative: Ms. 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 Patient states she occasionally gets vertigo, most recently 3 weeks ago, this typically goes away on her own however today she has had intermittent room spinning/vertigo symptoms in addition to nausea and 2 episodes of nonbloody emesis. The dizziness is not always present but it is worse when she gets up and is walking around. She is also reporting suprapubic abdominal pain, she can not specify when this pain started. Denies any dysuria, hematuria, vaginal discharge vaginal bleeding, chest pain, shortness of breath, visual disturbance, ear pain, headache, fevers, chills. She does report having an episode of palpitations earlier today. Related Data Home Medications Medication Instructions Recorded Confirmed ferrous sulfate 325 mg (65 mg 325 mg PO DAILY 10/14/20 11/12/24 iron) tablet (Feosol) ascorbic acid 30 mg-collagen, tab PO 06/03/24 11/12/24 hydrolyzed 833.3 mg tablet (Collagen Skin Renewal) Previous Rx's Medication Instructions Recorded scopolamine base 1 mg over 3 days 1 patch transdermal Q3D PRN motion 09/16/24 transdermal patch sickness #3 ea meclizine 25 mg tablet 25 mg PO BID PRN dizziness #14 tabs 12/25/24 Allergies Allergy/AdvReac Type Severity Reaction Status Date / Time soap Allergy Mild Rash Verified 11/26/24 13:53 Review of Systems <Jeri Layton PA-C - Last Filed: 12/25/24 19:10> Review of Systems ROS Unobtainable: All systems reviewed & are unremarkable except as noted in HPI and below Patient History <Jeri Layton PA-C - Last Filed: 12/25/24 19:10> Medical History Leukocytosis Vertigo Dysmenorrhea Infertility counseling Anxiety Palpitations Surgical History H/O laparoscopy History of lithotripsy Family History Mother Early menopause Father History of heart disease Mother History of heart disease Stroke Social History household members: spouse Smoking Status: Never smoker second hand exposure: Yes (childhood ) alcohol intake: never substance use type: does not use Smoking Status: Never smoker alcohol intake frequency: holidays/special occasions only Alcohol type: other Exam <Jeri Layton PA-C - Last Filed: 12/25/24 19:10> Narrative Exam Narrative: GENERAL: 29 year old patient appears stated age. Well-developed patient, in no acute distress. HEAD: Atraumatic. Normocephalic. EYES: PERRL. No nystagmus. Extraocular motions intact. No scleral icterus. No injection or drainage. ENT: Normal TMs bilaterally. Nose without bleeding, purulent drainage. Throat without erythema, tonsillar hypertrophy or exudate. Airway patent. NECK: Trachea midline. Cervical ROM intact. CARDIOVASCULAR: Regular rate and rhythm. RESPIRATORY: ?Nonlabored respirations. ?Speaking in clear, full sentences. ?Clear to auscultation. Breath sounds equal bilaterally. No wheezes, rales, or rhonchi. ? GASTROINTESTINAL: Tenderness to palpation of suprapubic region. No rebound rigidity distention or guarding. Normal bowel sounds. EXTREMITIES: No edema or joint tenderness. NEURO: AOx3. ?Clear speech. ?Moves all 4 extremities appropriately. No facial asymmetry. Steady gait. SKIN: No rash or erythema of visible areas Initial Vital Signs Initial Vital Signs: Vital Signs Temperature 97.4 F L 12/25/24 15:09 Pulse Rate 94 H 12/25/24 15:09 Respiratory Rate 12 12/25/24 15:09 Blood Pressure 129/76 12/25/24 15:09 Pulse Oximetry 100 12/25/24 15:09 Oxygen Delivery Method Room Air 12/25/24 15:09 <Darrell Rivas MD - Last Filed: 12/30/24 07:55> Initial Vital Signs Initial Vital Signs: Vital Signs Temperature 97.4 F L 12/25/24 15:09 Pulse Rate 94 H 12/25/24 15:09 Respiratory Rate 12 12/25/24 15:09 Blood Pressure 129/76 12/25/24 15:09 Pulse Oximetry 100 12/25/24 15:09 Oxygen Delivery Method Room Air 12/25/24 15:09 Course <Jeri Layton PA-C - Last Filed: 12/25/24 19:10> Orders Ordered: Discontinued Medications Sodium Chloride (Normal Saline 0.9%) 1,000 mls @ 1,000 mls/hr IV BOLUS ONE Stop: 12/25/24 16:55 Last Infusion: 12/25/24 17:37 Dose: Infused Documented By: Admin: 12/25/24 16:12 Dose: 1,000 mls/hr Documented By: RB Ketorolac Tromethamine (Ketorolac 30 Mg/Ml Vial) 15 mg IV NOW ONE Stop: 12/25/24 15:57 Last Admin: 12/25/24 16:12 Dose: 15 mg Documented By: RB Meclizine HCl (Meclizine Hcl 12.5 Mg Tablet) 25 mg PO NOW ONE Stop: 12/25/24 17:52 Last Admin: 12/25/24 18:07 Dose: 25 mg Documented By: RB Ondansetron HCl (Ondansetron 4 Mg/2 Ml Inj) 4 mg IV NOW PRN PRN Reason: Nausea And Vomiting Ondansetron HCl (Ondansetron 4 Mg Odt) 4 mg PO NOW PRN PRN Reason: Nausea And Vomiting Ondansetron HCl (Ondansetron 4 Mg/2 Ml Inj) 4 mg IV NOW ONE Stop: 12/25/24 15:57 Last Admin: 12/25/24 16:12 Dose: 4 mg Documented By: RB Vital Signs Vital signs: Vital Signs - 8 hr 12/25/24 15:09 12/25/24 18:24 Temperature 97.4 F L 97.9 F Pulse Rate 94 H 71 Respiratory Rate 12 16 Blood Pressure 129/76 124/69 Pulse Oximetry 100 99 Oxygen Delivery Method Room Air Room Air <Darrell Rivas MD - Last Filed: 12/30/24 07:55> Orders Ordered: Discontinued Medications Sodium Chloride (Normal Saline 0.9%) 1,000 mls @ 1,000 mls/hr IV BOLUS ONE Stop: 12/25/24 16:55 Last Infusion: 12/25/24 17:37 Dose: Infused Documented By: Admin: 12/25/24 16:12 Dose: 1,000 mls/hr Documented By: RB Ketorolac Tromethamine (Ketorolac 30 Mg/Ml Vial) 15 mg IV NOW ONE Stop: 12/25/24 15:57 Last Admin: 12/25/24 16:12 Dose: 15 mg Documented By: RB Meclizine HCl (Meclizine Hcl 12.5 Mg Tablet) 25 mg PO NOW ONE Stop: 12/25/24 17:52 Last Admin: 12/25/24 18:07 Dose: 25 mg Documented By: RB Ondansetron HCl (Ondansetron 4 Mg/2 Ml Inj) 4 mg IV NOW PRN PRN Reason: Nausea And Vomiting Ondansetron HCl (Ondansetron 4 Mg Odt) 4 mg PO NOW PRN PRN Reason: Nausea And Vomiting Ondansetron HCl (Ondansetron 4 Mg/2 Ml Inj) 4 mg IV NOW ONE Stop: 12/25/24 15:57 Last Admin: 12/25/24 16:12 Dose: 4 mg Documented By: RB Vital Signs Vital signs: Vital Signs - 8 hr 12/25/24 15:09 12/25/24 18:24 Temperature 97.4 F L 97.9 F Pulse Rate 94 H 71 Respiratory Rate 12 16 Blood Pressure 129/76 124/69 Pulse Oximetry 100 99 Oxygen Delivery Method Room Air Room Air MDM - Nausea/Vomiting/Diarrhea <Jeri Layton PA-C - Last Filed: 12/25/24 19:10> Medical Records Attestation: I reviewed the patient's medical records. Medical records narrative: ED visit 10/20/2022 for atypical chest pain. Lab Data 12/25/24 15:24 12/25/24 15:24 Labs: Lab Results 12/25/24 12/25/24 12/25/24 Range/Units 15:24 15:40 15:45 WBC 9.2 (4.5-11.0) X10^3/uL RBC 4.52 (4.0-5.2) X10^6/uL Hgb 13.7 (12.0-16.0) g/dL Hct 39.9 (36-46) % MCV 88.3 (80-100) fL MCH 30.3 (26-34) PG MCHC 34.3 (30-36) % RDW 12.9 (11.6-14.8) % Plt Count 267 (150-400) X10^3/uL Neut % (Auto) 55.0 (50-75) % Lymph % (Auto) 32.5 (25-40) % [place] % (Auto) 9.2 (3-14) % Eos % (Auto) 2.7 (2-4) % Baso % (Auto) 0.6 (0-2) % Neut # (Auto) 5100 (3839-3893) /uL Lymph # (Auto) 3000 (6051-8243) /uL [place] # (Auto) 800 (0-900) /uL Eos # (Auto) 300 (0-450) /uL Baso # (Auto) 100 (0-100) /uL Sodium 138 (137-145) mmol/L Potassium 3.5 (3.4-5.1) mmol/L Chloride 103 (98-107) mmol/L Carbon Dioxide 27 (22-32) mmol/L BUN 10 (7-17) mg/dL Creatinine 0.68 (0.52-1.04) mg/dL Estimated GFR > 60 (>60) mL/min BUN/Creatinine Ratio 14.7 (6-22) Glucose 109 H (70-99) mg/dL Calcium 9.1 (8.4-10.2) mg/dL Total Bilirubin 0.5 (0.2-1.3) mg/dL AST 33 (14-36) IU/L ALT 31 (<35) IU/L Alkaline Phosphatase 45 (38-126) U/L Total Protein 8.3 H (6.3-8.2) g/dL Albumin 4.6 (3.5-5.0) g/dL Globulin 3.7 (1.7-4.1) g/dL Albumin/Globulin Ratio 1.2 (1.0-2.8) Urine Color Yellow Urine Appearance Clear Urine pH 7.0 (4.5-8.0) Ur Specific [place] <=1.005 (1.000-1.035) Urine Protein Negative (Negative) Urine Glucose (UA) Negative (Negative) g/dL Urine Ketones Negative (NEGATIVE) Urine Occult Blood Trace-intact (Negative) Urine Nitrate Negative (Negative) Urine Bilirubin Negative (NEGATIVE) Urine Urobilinogen 0.2 (0.2) E.U./dL Ur Leukocyte Esterase Negative (NEGATIVE) Urine RBC 0-1/hpf (0-5/HPF) Urine WBC None seen (0-5/HPF) Ur Squamous Epith Cells 0-1 /hpf (0-5/HPF) Urine Bacteria None seen (None) Ur Culture Indicated? Cult not indicated Vol Urine Centrifuged 10ml (spun) Urine Test Negative (Negative) SARS-CoV-2 (PCR) Positive H (Negative) Influenza A (RT-PCR) Flu a negative (NEGATIVE) Influenza B (RT-PCR) Flu b negative (NEGATIVE) RSV (PCR) Negative (Negative) Imaging Data CT scan - abdomen/pelvis: Radiologist's Impression: PROCEDURE: CT ABDOMEN PELVIS W CON INDICATIONS: N/V/suprapubic abd pain TECHNIQUE: After the administration of intravenous contrast, axial sections acquired from the lung bases to the pubic symphysis. Coronal and sagittal reformats were performed. For radiation dose reduction, the following was used: automated exposure control, adjustment of mA and/or kV according to patient size. COMPARISON: None. FINDINGS: Image quality: Diagnostic. Lower Chest: No significant findings. ABDOMEN: Liver: No solid mass. Gallbladder: No radiopaque gallstones or wall thickening. Biliary ducts: No biliary dilation. Pancreas: No ductal dilation. Spleen: Size is within normal limits. Adrenal Glands: No adrenal nodules. Kidneys and Ureters: No hydronephrosis. No solid mass. No complex renal cystic lesion which requires follow up. Stomach and Bowel: Normal colonic caliber, without significant wall thickening. Normal appendix. Peritoneum: No abnormal intraperitoneal fluid. No free air. Ventral Wall: No significant ventral hernia. Abdominal Nodes: No retroperitoneal or mesenteric adenopathy by size criteria. Vessels: Aorta and inferior vena cava are normal in size. PELVIS: Pelvic Organs: Unremarkable. Bladder: Distended bladder without wall thickening. Pelvic Nodes: No enlarged lymph nodes. Miscellaneous: No inguinal hernias are seen. Bones: No aggressive osseous abnormality. IMPRESSION: No acute abdominal process. Distended bladder without wall thickening. Dictated by: José Manuel Kline M.D. on 12/25/2024 at 16:53 Approved by: José Manuel Kline M.D. on 12/25/2024 at 16:55 ECG Data Interpretation: ECG reveals a rate of 86 beats per minute. A QTC of 440. Normal sinus rhythm. 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 She is also having suprapubic abdominal pain. Differential diagnosis includes but is not limited to viral syndrome, vertigo, electrolyte abnormality, dehydration, UTI, ovarian cyst, , gastroenteritis, labyrinthitis, etc. On exam the patient is in no acute distress, nontoxic appearing, vital signs appropriate. She is suprapubic abdominal tenderness with no rebound guarding or rigidity. She has not having any concerns. She has occasional vertiginous symptoms in addition to lightheadedness with 2 episodes of vomiting. Viral swab ordered in addition to CBC, CMP, UA, CT abdomen and pelvis with IV contrast. We will treat with fluids, Zofran, Toradol this time. Patient's workup reveals that she is positive for COVID-19. UA without signs of infection. Labs overall reassuring with normal WBC count 9.2, normal renal function. Her abdominal pain has completely resolved and her dizziness has improved but not resolved, we will treat with meclizine, normal QTc. CT abdomen pelvis reveals no acute abdominal process. At this time I do believe patient's symptoms are likely result of COVID-19, possibly exacerbating her chronic vertigo as well. Recommended supportive care, rest, hydration, ibuprofen and acetaminophen if needed for pain or fevers, meclizine if needed for vertigo. Discussed strict ED return precautions and follow up with PCP. Patient and verbalized understanding of all information and she is agreeable with the plan and stable for discharge home. <Darrell Rivas MD - Last Filed: 12/30/24 07:55> Lab Data Labs: Lab Results 12/25/24 12/25/24 12/25/24 Range/Units 15:24 15:40 15:45 WBC 9.2 (4.5-11.0) X10^3/uL RBC 4.52 (4.0-5.2) X10^6/uL Hgb 13.7 (12.0-16.0) g/dL Hct 39.9 (36-46) % MCV 88.3 (80-100) fL MCH 30.3 (26-34) PG MCHC 34.3 (30-36) % RDW 12.9 (11.6-14.8) % Plt Count 267 (150-400) X10^3/uL Neut % (Auto) 55.0 (50-75) % Lymph % (Auto) 32.5 (25-40) % [place] % (Auto) 9.2 (3-14) % Eos % (Auto) 2.7 (2-4) % Baso % (Auto) 0.6 (0-2) % Neut # (Auto) 5100 (1775-6000) /uL Lymph # (Auto) 3000 (0384-8147) /uL [place] # (Auto) 800 (0-900) /uL Eos # (Auto) 300 (0-450) /uL Baso # (Auto) 100 (0-100) /uL Sodium 138 (137-145) mmol/L Potassium 3.5 (3.4-5.1) mmol/L Chloride 103 (98-107) mmol/L Carbon Dioxide 27 (22-32) mmol/L BUN 10 (7-17) mg/dL Creatinine 0.68 (0.52-1.04) mg/dL Estimated GFR > 60 (>60) mL/min BUN/Creatinine Ratio 14.7 (6-22) Glucose 109 H (70-99) mg/dL Calcium 9.1 (8.4-10.2) mg/dL Total Bilirubin 0.5 (0.2-1.3) mg/dL AST 33 (14-36) IU/L ALT 31 (<35) IU/L Alkaline Phosphatase 45 (38-126) U/L Total Protein 8.3 H (6.3-8.2) g/dL Albumin 4.6 (3.5-5.0) g/dL Globulin 3.7 (1.7-4.1) g/dL Albumin/Globulin Ratio 1.2 (1.0-2.8) Urine Color Yellow Urine Appearance Clear Urine pH 7.0 (4.5-8.0) Ur Specific [place] <=1.005 (1.000-1.035) Urine Protein Negative (Negative) Urine Glucose (UA) Negative (Negative) g/dL Urine Ketones Negative (NEGATIVE) Urine Occult Blood Trace-intact (Negative) Urine Nitrate Negative (Negative) Urine Bilirubin Negative (NEGATIVE) Urine Urobilinogen 0.2 (0.2) E.U./dL Ur Leukocyte Esterase Negative (NEGATIVE) Urine RBC 0-1/hpf (0-5/HPF) Urine WBC None seen (0-5/HPF) Ur Squamous Epith Cells 0-1 /hpf (0-5/HPF) Urine Bacteria None seen (None) Ur Culture Indicated? Cult not indicated Vol Urine Centrifuged 10ml (spun) Urine Test Negative (Negative) SARS-CoV-2 (PCR) Positive H (Negative) Influenza A (RT-PCR) Flu a negative (NEGATIVE) Influenza B (RT-PCR) Flu b negative (NEGATIVE) RSV (PCR) Negative (Negative) Discharge Plan Departure Patient Disposition: Home Clinical Impression: COVID, Dizziness Nausea & vomiting Qualifiers: Vomiting type: unspecified Qualified Code(s): R11.2 - Nausea with vomiting, unspecified Instructions: Vertigo, DI for COVID-19 (Suspected or Confirmed ) Activity Restrictions/Additional Instructions: Dear Haynes, Thank you for coming to the emergency department. Today you were evaluated for dizziness, nausea, vomiting, lower abdominal pain. Your lab work and CT scan were overall reassuring. You did test positive for COVID which is likely the cause of your symptoms. You have been prescribed medication to use if needed to help with dizziness. Please rest, hydrate, use ibuprofen and acetaminophen if needed for pain or fevers, and stay home from work to prevent the spread of the infection. Please follow up with your primary care doctor and return to the emergency department if you develop any new or worsening symptoms. Please follow up with your primary care doctor within the next 2-3 days for ER follow-up. (If you do not have a PCP you can call [phone]. ?to schedule an appointment with an [facility] Primary Care Provider) IF YOU DEVELOP ANY NEW OR WORSENING SYMPTOMS, RETURN TO THE ER! Please read the attached instructions, they highlight more specific treatments and interventions for you at home. Thank you for letting me participate in your care, Jeri Layton PA-C Prescriptions: New meclizine 25 mg tablet 25 mg PO BID PRN (Reason: dizziness) Qty: 14 0RF No Action scopolamine base 1 mg over 3 days patch 3 day 1 patch transdermal Q3D PRN (Reason: motion sickness) Qty: 3 0RF Rx Instructions: Apply 1 patch behind the ear for use up to 72 hours. ferrous sulfate [Feosol] 325 mg (65 mg iron) tablet 325 mg PO DAILY Collagen Skin Renewal 30-833.3 mg tablet PO Referrals: Rahel Donaldson DO [Primary Care Provider] - Stand Alone Forms: Patient Portal/API/Survey, Work Release Note ED Sign-out <Darrell Rivas MD - Last Filed: 12/30/24 07:55> Cosign ED Attending Cosignature Attestation: I was immediately available in the department for consultation. ?This documentation has been reviewed and I agree with assessment and plan. Supervised by Darrell Rivas MD
[2024-12-25 15:43] LABS: Alanine Aminotransferase 31 IU/L (<35); Albumin 4.6 g/dL (3.5-5.0); Albumin Globulin Ratio 1.2 (1.0-2.8); Alkaline Phosphatase 45 U/L (38-126); Aspartate Aminotransferase 33 IU/L (14-36); BUN Creatinine Ratio 14.7 (6-22); Bilirubin Total 0.5 mg/dL (0.2-1.3); Blood Urea Nitrogen 10 mg/dL (7-17); Calcium 9.1 mg/dL (8.4-10.2); Carbon Dioxide 27 mmol/L (22-32); Chloride 103 mmol/L (98-107); Estimated Glomerular Filt Rate > 60 mL/min (>60); Globulin 3.7 g/dL (1.7-4.1); Glucose 109 mg/dL (70-99); HEMOLYSIS 17 (0-50); Potassium 3.5 mmol/L (3.4-5.1); Sodium 138 mmol/L (137-145); Total Protein 8.3 g/dL (6.3-8.2)
--- NOTE | 2024-12-25 15:56 | DI.CT.S_ITS ---
PROCEDURE: CT ABDOMEN PELVIS W CON INDICATIONS: N/V/suprapubic abd pain TECHNIQUE: After the administration of intravenous contrast, axial sections acquired from the lung bases to the pubic symphysis. Coronal and sagittal reformats were performed. For radiation dose reduction, the following was used: automated exposure control, adjustment of mA and/or kV according to patient size. COMPARISON: None. FINDINGS: Image quality: Diagnostic. Lower Chest: No significant findings. ABDOMEN: Liver: No solid mass. Gallbladder: No radiopaque gallstones or wall thickening. Biliary ducts: No biliary dilation. Pancreas: No ductal dilation. Spleen: Size is within normal limits. Adrenal Glands: No adrenal nodules. Kidneys and Ureters: No hydronephrosis. No solid mass. No complex renal cystic lesion which requires follow up. Stomach and Bowel: Normal colonic caliber, without significant wall thickening. Normal appendix. Peritoneum: No abnormal intraperitoneal fluid. No free air. Ventral Wall: No significant ventral hernia. Abdominal Nodes: No retroperitoneal or mesenteric adenopathy by size criteria. Vessels: Aorta and inferior vena cava are normal in size. PELVIS: Pelvic Organs: Unremarkable. Bladder: Distended bladder without wall thickening. Pelvic Nodes: No enlarged lymph nodes. Miscellaneous: No inguinal hernias are seen. Bones: No aggressive osseous abnormality. IMPRESSION: No acute abdominal process. Distended bladder without wall thickening. Dictated by: José Manuel Kline M.D. on 12/25/2024 at 16:53 Approved by: José Manuel Kline M.D. on 12/25/2024 at 16:55
[2024-12-25 16:03] LABS: Appearance Urine UA CLEAR; Bilirubin Urine UA NEGATIVE (NEGATIVE); Color Urine UA YELLOW; Glucose Urine UA NEGATIVE (Negative); Ketones Urine UA NEGATIVE (NEGATIVE); Leukocyte Esterase Urine UA NEGATIVE (NEGATIVE); Nitrite Urine UA NEGATIVE (Negative); Occult Blood Urine UA TRACE-INTACT (Negative); Protein Urine UA NEGATIVE (Negative); Specific Gravity Urine UA <=1.005 (1.000-1.035); Urobilinogen Urine UA 0.2 E.U./dL (0.2)
[2024-12-25 16:06] LABS: Pregnancy Test Urine Negative (Negative)
[2024-12-25 16:10] LABS: Bacteria Urine None Seen; Culture Indicated Urine Cult Not Indicated; RBC Urine 0-1/HPF (0-5/HPF); Squamous Epithelial Cell Urine 0-1 /HPF (0-5/HPF); Urine Volume 10mL (spun); WBC Urine None Seen (0-5/HPF)
[2024-12-25] MEDS: ONDANSETRON 4 MG/2 ML INJ IV (16:12)
[2024-12-25] MEDS: KETOROLAC 30 MG/ML VIAL 15 MG IV (16:12)
[2024-12-25] MEDS: SODIUM CHLORIDE 0.9% 1,000 ML 1000 ML IV (16:12)
[2024-12-25 17:01] LABS: Influenza A - CEPHEID Flu A NEGATIVE (NEGATIVE); Influenza B - CEPHEID Flu B NEGATIVE (NEGATIVE); Respiratory Syncytial Virus Negative (Negative)
[2024-12-25 17:03] LABS: COVID-19 CEPHEID 4-PLEX PCR POSITIVE (Negative)
[2024-12-25] MEDS: MECLIZINE HCL 12.5 MG TABLET 25 MG PO (18:07)
[2024-12-25 18:24] VITALS: BP 124/69; PULSE 71; RESP 16; TEMP 36.6; O2SAT 99
== END 2024-12-25 18:27 | disposition home or self-care (01) ==
PROVIDERS: Emergency Medicine; Emergency Provider Physician Assistant; PCP Family Medicine
DX: U07.1 COVID-19 (principal); R11.2 Nausea with vomiting, unspecified; R42 Dizziness and giddiness
CPT/HCPCS: 0241U; 36415; 74177; 80053; 81001; 81025; 85025; 93005; 93010; 96361; 96374; 96375; 99284; J1885; J2405; Q9967